=== PATIENT | female | born 1970 | race Two or more races ===

== ENCOUNTER 2020-06-15 09:29 | Outpatient (REF) | payer OTHER, SELFPAY ==
[2020-06-15 10:14] LABS: MANUAL DIFF FLAG NO
[2020-06-15 10:21] LABS: Basophils Percent Auto 0.8 % (0-2); Eosinophils Absolute Auto 0.1 X10*3/uL (0.0-0.4); Eosinophils Percent Auto 1.9 % (0-4); Hematocrit 40.9 % (37-47); Imm Gran Abs Auto 0.01 X10*3/uL (0.00-0.03); Imm Gran Pct Auto 0.3 % (0.0-0.4); Lymphocytes Absolute Auto 1.2 X10*3/uL (1.2-4.9); Lymphocytes Percent Auto 31.6 % (20-40); Mean Corpuscular HGB Conc 31.8 g/dl (31.0-35.0); Mean Corpuscular Hemoglobin 27.5 pg (27.0-33.0); Mean Corpuscular Volume 86.5 fL (80-98); Mean Platelet Volume 11.6 fL (9.4-12.3); Monocytes Absolute Auto 0.3 X10*3/uL (0.1-1.2); Monocytes Percent Auto 6.8 % (2-11); Neutrophils Absolute Auto 2.2 X10*3/uL (2.0-8.3); Neutrophils Percent Auto 58.6 % (45-73); Platelet Count 306 X10*3/uL (160-400); Red Blood Count 4.73 X10*6/uL (4.20-5.50); Red Cell Distribution Width 15.2 % (11.0-16.0); White Blood Count 3.7 X10*3/uL (4.8-10.8)
[2020-06-15 10:43] LABS: Alanine Aminotransferase 9 U/L (0-31); Albumin Level 4.2 g/dL (3.5-5.0); Alkaline Phosphatase 74 U/L (39-117); Anion Gap 12 (12-20); Aspartate Amino Transferase 10 U/L (5-31); Bilirubin Direct < 0.2 mg/dL (0.0-0.5); Bilirubin Total 0.6 mg/dL (0.0-1.0); Blood Urea Nitrogen 13 mg/dL (9-16); Calcium 8.7 mg/dL (8.4-10.2); Carbon Dioxide 28 mmol/L (22-29); Chloride 105 mmol/L (96-108); Estimated Glomerular Filt Rate > 60; Glucose Fasting 104 mg/dL (60-99); Potassium 4.3 mmol/l (3.3-5.1); Sodium 141 mmol/L (135-145)
== END 2020-06-15 09:30 | disposition home or self-care (01) ==
LOC: HO.LAB 09:29
PROVIDERS: PCP Internal Medicine Geriatric Medicine; Visit Provider Internal Medicine
DX: K51.00 Ulcerative (chronic) pancolitis without complications (principal)
CPT/HCPCS: 36415; 80053; 80076; 82248; 85025

== ENCOUNTER 2020-11-27 08:13 | Outpatient (REF) | payer OTHER, SELFPAY ==
[2020-11-27 08:52] LABS: MANUAL DIFF FLAG NO
[2020-11-27 09:09] LABS: Basophils Percent Auto 0.7 % (0-2); Eosinophils Absolute Auto 0.1 X10*3/uL (0.0-0.4); Eosinophils Percent Auto 1.7 % (0-4); Hematocrit 44.9 % (37-47); Hemoglobin 14.4 g/dl (12.0-16.0); Imm Gran Abs Auto 0.01 X10*3/uL (0.00-0.03); Imm Gran Pct Auto 0.2 % (0.0-0.4); Lymphocytes Absolute Auto 1.3 X10*3/uL (1.2-4.9); Lymphocytes Percent Auto 27.3 % (20-40); Mean Corpuscular HGB Conc 32.1 g/dl (31.0-35.0); Mean Corpuscular Hemoglobin 28.9 pg (27.0-33.0); Monocytes Absolute Auto 0.3 X10*3/uL (0.1-1.2); Monocytes Percent Auto 6.7 % (2-11); Neutrophils Absolute Auto 2.9 X10*3/uL (2.0-8.3); Neutrophils Percent Auto 63.4 % (45-73); Platelet Count 339 X10*3/uL (160-400); Red Blood Count 4.99 X10*6/uL (4.20-5.50); Red Cell Distribution Width 13.4 % (11.0-16.0); White Blood Count 4.6 X10*3/uL (4.8-10.8)
[2020-11-27 09:11] LABS: Alanine Aminotransferase 13 U/L (0-31); Albumin Level 4.2 g/dL (3.5-5.0); Alkaline Phosphatase 89 U/L (39-117); Aspartate Amino Transferase 12 U/L (5-31); Bilirubin Direct 0.2 mg/dL (0.0-0.5); Bilirubin Total 0.5 mg/dL (0.0-1.0); Total Protein 7.2 g/dL (6.5-8.0)
== END 2020-11-27 08:14 | disposition home or self-care (01) ==
LOC: HO.LAB 08:13
PROVIDERS: PCP Internal Medicine Geriatric Medicine; Visit Provider Internal Medicine
DX: K51.90 Ulcerative colitis, unspecified, without complications (principal)
CPT/HCPCS: 36415; 80076; 85025

== ENCOUNTER 2020-12-31 08:48 | Emergency (ER) | payer OTHER, SELFPAY ==
--- NOTE | ~2020-12-31 | CT_ITS ---
EXAMINATION: CT BRAIN WITHOUT CONTRAST. CT FACIAL BONES WITHOUT CONTRAST. CLINICAL INFORMATION: Head trauma. COMPARISON: None TECHNIQUE: 5 mm thin axial and reformatted 2 mm thin sagittal and coronal images of brain were obtained. Subsequently axial 3 mm thin and reformatted 1.5 mm thin sagittal and coronal images of facial bones were obtained. [facility] 965 FINDINGS: BRAIN: There is no acute intra-axial, extra-axial bleed, masses or midline shift. Both lateral ventricles are symmetrical in size and configuration without ventriculomegaly. There is no acute infarction in evolution. There is no edema. Bone windows reveal no calvarial abnormality. Bilateral paranasal sinuses and mastoid air cells are well-aerated with minimal mucoperiosteal thickening left sphenoid sinus. FACIAL BONES: There is no maxillofacial, nasal or mandibular fracture. Bilateral TM joints are symmetrical and intact. Bilateral bony orbits are intact. Visualized optic globe, optic nerve and the extraocular muscles are symmetrical and normal. There is mild right maxillary and right frontal periorbital soft tissue swelling. No underlying fracture seen. CT/CT facial bones wo con IMPRESSION: No acute intracranial process seen.. Right frontal and right maxillary soft tissue swelling but no underlying calvarial or maxillofacial fracture. Minimal mucoperiosteal thickening left sphenoid sinus. No maxillofacial fractures seen.
--- NOTE | ~2020-12-31 | CT_ITS ---
EXAMINATION: CT BRAIN WITHOUT CONTRAST. CT FACIAL BONES WITHOUT CONTRAST. CLINICAL INFORMATION: Head trauma. COMPARISON: None TECHNIQUE: 5 mm thin axial and reformatted 2 mm thin sagittal and coronal images of brain were obtained. Subsequently axial 3 mm thin and reformatted 1.5 mm thin sagittal and coronal images of facial bones were obtained. [facility] 965 FINDINGS: BRAIN: There is no acute intra-axial, extra-axial bleed, masses or midline shift. Both lateral ventricles are symmetrical in size and configuration without ventriculomegaly. There is no acute infarction in evolution. There is no edema. Bone windows reveal no calvarial abnormality. Bilateral paranasal sinuses and mastoid air cells are well-aerated with minimal mucoperiosteal thickening left sphenoid sinus. FACIAL BONES: There is no maxillofacial, nasal or mandibular fracture. Bilateral TM joints are symmetrical and intact. Bilateral bony orbits are intact. Visualized optic globe, optic nerve and the extraocular muscles are symmetrical and normal. There is mild right maxillary and right frontal periorbital soft tissue swelling. No underlying fracture seen. CT/CT head/brain wo con IMPRESSION: No acute intracranial process seen.. Right frontal and right maxillary soft tissue swelling but no underlying calvarial or maxillofacial fracture. Minimal mucoperiosteal thickening left sphenoid sinus. No maxillofacial fractures seen.
[2020-12-31 09:01] VITALS: BP 122/64; PULSE 94; RESP 16; TEMP 35.9; O2SAT 97; BMI 31.2
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
== END 2020-12-31 12:01 | disposition home or self-care (01) ==
PROVIDERS: Emergency Provider Emergency Medicine; PCP Internal Medicine Geriatric Medicine
DX: S09.90XA Unspecified injury of head, initial encounter (principal); S40.811A Abrasion of right upper arm, initial encounter; H05.231 Hemorrhage of right orbit; H57.11 Ocular pain, right eye; G44.309 Post-traumatic headache, unspecified, not intractable; W05.2XXA Fall from non-moving motorized mobility scooter, initial encounter; Y93.9 Activity, unspecified; Y92.9 Unspecified place or not applicable; Y99.9 Unspecified external cause status
CPT/HCPCS: 70450; 70486; 99283

== ENCOUNTER 2022-09-11 11:33 | Outpatient (REF) | payer OTHER, SELFPAY ==
[2022-09-11 11:51] LABS: MANUAL DIFF FLAG NO
[2022-09-11 12:06] LABS: Basophils Percent Auto 0.4 % (0-2); Eosinophils Absolute Auto 0.1 X10*3/uL (0.0-0.4); Eosinophils Percent Auto 0.9 % (0-4); Hematocrit 43.4 % (37.0-47.0); Imm Gran Abs Auto 0.03 X10*3/uL (0.00-0.03); Imm Gran Pct Auto 0.4 % (0.0-0.4); Lymphocytes Absolute Auto 1.4 X10*3/uL (1.2-4.9); Lymphocytes Percent Auto 20.2 % (20-40); Mean Corpuscular HGB Conc 32.3 g/dl (31.0-35.0); Mean Corpuscular Hemoglobin 29.2 pg (27.0-33.0); Mean Corpuscular Volume 90.6 fL (80.0-98.0); Mean Platelet Volume 10.5 fL (9.4-12.3); Monocytes Absolute Auto 0.4 X10*3/uL (0.1-1.2); Neutrophils Absolute Auto 5.1 x10*3/uL (2.0-8.3); Neutrophils Percent Auto 73.1 % (45-73); Platelet Count 320 X10*3/uL (160-400); Red Blood Count 4.79 X10*6/uL (4.20-5.50); Red Cell Distribution Width 13.5 % (11.0-16.0)
[2022-09-11 12:44] LABS: Erythrocyte Sedimentation Rate 42 MM/HR (0-20)
[2022-09-11 12:52] LABS: Alanine Aminotransferase 26 U/L (0-31); Albumin Level 4.3 g/dL (3.5-5.0); Alkaline Phosphatase 97 U/L (39-117); Amylase 38 U/L (28-100); Aspartate Amino Transferase 20 U/L (5-31); Bilirubin Direct < 0.2 mg/dL (0.0-0.5); Bilirubin Total 0.4 mg/dL (0.0-1.0); C Reactive Protein 1.19 mg/dL (< or = 0.50); Lipase 34 U/L (8-78); Total Protein 7.4 g/dL (6.5-8.0)
== END 2022-09-11 11:34 | disposition home or self-care (01) ==
LOC: HO.LAB 11:33
PROVIDERS: PCP Internal Medicine Geriatric Medicine; Visit Provider Internal Medicine
DX: K51.90 Ulcerative colitis, unspecified, without complications (principal); R19.7 Diarrhea, unspecified; K62.5 Hemorrhage of anus and rectum; R11.0 Nausea
CPT/HCPCS: 36415; 80076; 82150; 83690; 85025; 85652; 86140

== ENCOUNTER 2022-09-14 09:04 | Outpatient (REF) | payer OTHER, SELFPAY ==
[2022-09-15 11:56] LABS: Leukocytes Stool Qualitative NEGATIVE (NEGATIVE)
[2022-09-15 13:42] LABS: CDiff Gene PCR NEGATIVE (Negative)
[2022-09-20 23:04] LABS: Calprotectin, Fecal 3550 mcg/g
== END 2022-09-14 09:05 | disposition home or self-care (01) ==
LOC: HO.LNP 09:04
PROVIDERS: Visit Provider Internal Medicine
DX: K51.90 Ulcerative colitis, unspecified, without complications (principal); R19.7 Diarrhea, unspecified; K62.5 Hemorrhage of anus and rectum; R11.0 Nausea
CPT/HCPCS: 83993; 87493; 87507; 89055

== ENCOUNTER 2022-09-25 10:04 | Outpatient (REF) | payer OTHER, SELFPAY ==
[2022-09-25 12:06] LABS: Adenovirus F 40/41 Not Detected (Not Detect.); Astrovirus Not Detected (Not Detect.); Campylobacter Not Detected (Not Detect.); Cryptosporidium Not Detected (Not Detect.); Cyclospora cayetanensis Not Detected (Not Detect.); E. coli EAEC Not Detected (Not Detect.); E. coli EPEC Not Detected (Not Detect.); E. coli ETEC Not Detected (Not Detect.); E. coli STEC Not Detected (Not Detect.); Entamoeba histolytica Not Detected (Not Detect.); Giardia lamblia Not Detected (Not Detect.); Norovirus GI/GII Not Detected (Not Detect.); Plesiomonas shigelloides Not Detected (Not Detect.); Rotavirus A Not Detected (Not Detect.); Salmonella Not Detected (Not Detect.); Sapovirus Not Detected (Not Detect.); Shigella sp./EIEC Not Detected (Not Detect.); Vibrio Not Detected (Not Detect.); Vibrio Cholerae Not Detected (Not Detect.); Yersinia enterocolitica Not Detected (Not Detect.)
== END 2022-09-25 10:05 | disposition home or self-care (01) ==
LOC: HO.LNP 10:04
PROVIDERS: Visit Provider Internal Medicine
DX: R19.7 Diarrhea, unspecified (principal); K51.00 Ulcerative (chronic) pancolitis without complications
CPT/HCPCS: 87507

== ENCOUNTER 2022-11-03 09:30 | Day surgery (SDC) | payer OTHER, SELFPAY ==
--- NOTE | 2022-10-31 14:09 | P.CONAN_ITS ---
Documented by User: Lakisha Dixon NP 10/31/22 14:10 HPI - Anesthesia Eval Consult details Narrative: 52yo F for Colonoscopy [facility] Past Medical History Medical History Pneumonia Ulcerative colitis Surgical History Surgical History H/O colonoscopy Hx of inguinal hernia surgery Social History Social History Patient Tobacco Use Status: Never used Tobacco Are you DNR?: No Advance Directives: No Advance Directives Information Provided: Yes Nutrition Risks: No Nutritional Risk FDLMP: last month Meds Allergies Allergy/AdvReac Type Severity Reaction Status Date / Time infliximab [From REMICADE] Allergy Unknown UNKNOWN Verified 11/03/22 09:33 tramadol [TRAMADOL] Allergy Unknown UNKNOWN Verified 11/03/22 09:33 Home Medications Medication Instructions Recorded Confirmed Last Taken Type balsalazide 750 mg capsule 3 cap PO TID 10/31/22 10/31/22 Unknown History Exam Exam Date and Time: October 31, 2022 [id number] Assessment and Plan Assessment Anesthesia Assessment: Chart Reviewed Documented by User: Chanda Cuevas MD 11/03/22 10:38 [facility] Past Medical History Medical History Pneumonia Ulcerative colitis Family History Family history of problems with anesthesia: No Surgical History Surgical History H/O colonoscopy Hx of inguinal hernia surgery History of Problems with Anesthesia: No Social History Social History Patient Tobacco Use Status: Never used Tobacco Are you DNR?: No Advance Directives: No Advance Directives Information Provided: Yes Nutrition Risks: No Nutritional Risk FDLMP: last month Meds Allergies Allergy/AdvReac Type Severity Reaction Status Date / Time infliximab [From REMICADE] Allergy Unknown UNKNOWN Verified 11/03/22 09:33 tramadol [TRAMADOL] Allergy Unknown UNKNOWN Verified 11/03/22 09:33 Home Medications Medication Instructions Recorded Confirmed Last Taken Type balsalazide 750 mg capsule 3 cap PO TID 10/31/22 10/31/22 Unknown History Exam Height,Weight and Vital Signs: Height 5 ft 0.05 in Weight 74.389 kg Vital Signs Temp Pulse Resp BP Pulse Ox O2 Del Method 11/03/22 09:58 97.9 F 100 18 104/67 98 Room Air Pertinent Lab Results Pertinent Lab Results: Patient states absolutely no chance of being Airway Mallampati Class: II TM Dist: >3cm Neck ROM: Full Loose/Missing/Broken Teeth: No (Denies broken, loose, missing teeth) Heart: RRR Lungs: CTAB Assessment and Plan Assessment Anesthesia Assessment: Anesthesia Plan Discussed Final Anesthetic Review Family History of Problems with Anesthesia: No History of Problems with Anesthesia: No NPO: Yes ASA Class: II Final Preanesthetic Review: No Changes in Pt Med Stat, Meds/Allgs Chart Reviewed, Consent Obtained/Reviewed and Anes Risks/Benef Reviewed Patient Risk: Low Procedure Risk: Low Assessment/Block/Sedation in SS: Assess/Block/Sedation-SS Anesthetic Plan Anesthetic Plan: MAC: Disposition: Standard PACU
[2022-11-03 06:18] VITALS: BMI 31.9
--- NOTE | 2022-11-03 09:47 | PC.NURSE ---
Dr. Cuevas updated that patient states that she still has a menstrual cycle and denies any chance of pregnacy. Dr. Patel stated she will document this information and no urine hcg is necessary.
[2022-11-03] MEDS: Lactated Ringers 1,000 ML 100 ML IVCONT (09:50)
[2022-11-03 09:58] VITALS: BP 104/67; PULSE 100; RESP 18; TEMP 36.6; O2SAT 98
[2022-11-03 10:50] VITALS: BP 81/40; PULSE 82; RESP 16; TEMP 36.2; O2SAT 95
--- NOTE | 2022-11-03 10:54 | PM.OP ---
Brief Operative Note Date of Service: 11/03/22 Pre-op diagnosis: Ulcerative colitis, Screening Post-op diagnosis: other (Same, R/O dysplasia) Procedure: Colonoscopy to the cecum and TI with biopsies Surgeon: Jackson Gaitan Anesthesia: MAC Was an Aircraft Fuselage Framer used for this Procedure?: No Estimated blood loss (mL): 4.0 Pathology: other (A. Ascending colon B. Transverse colon C. Descending colon D. Sigmoid colon E. Rectum) Condition: stable Disposition: PACU
[2022-11-03 11:05] VITALS: BP 103/63; PULSE 72; RESP 16; TEMP 36.7; O2SAT 96
--- NOTE | 2022-11-03 12:58 | OP_ITS ---
SURGEON: Jackson Gaitan MD PREOPERATIVE DIAGNOSIS: POSTOPERATIVE DIAGNOSIS: PROCEDURE PERFORMED: Colonoscopy to the cecum and terminal ileum with multiple biopsies. ESTIMATED BLOOD LOSS: COMPLICATIONS: ANESTHESIA: Monitored anesthesia care. ASSISTANTS: SPECIMENS: PREOPERATIVE DIAGNOSES: Ulcerative colitis, history of tubular adenoma of the colon, colorectal cancer screening. POSTOPERATIVE DIAGNOSES: Ulcerative colitis, history of tubular adenoma of the colon, colorectal cancer screening, rule out dysplasia, and small internal hemorrhoids. INDICATION: The patient presents for evaluation of long-standing ulcerative colitis and history of tubular adenoma of the colon. Full consent has been obtained from her for this, including risks of bleeding and perforation. DESCRIPTION OF PROCEDURE: The patient was placed in the left lateral decubitus position. The digital rectal exam revealed no abnormalities and specifically no sign of any perianal disease. The Olympus video pediatric colonoscope was then entered into the rectum and advanced easily to the cecum. Once in the cecum, I did identify cecal pouch with appendiceal orifice. The terminal ileum was cannulated and appeared normal. The scope was withdrawn back in the colon. The entire cecum had changes consistent with a chronic ulcerative colitis with some scarring, edema, and friability. I did not visualize any lesions. The scope was then slowly withdrawn, assessing all mucosal surfaces carefully. Preparation was excellent. Extending from the distal rectum all the way to the cecum was a diffuse pancolitis with edema, friability, and scarring. There were no ulcerations nor any lesions. Multiple biopsies were obtained at the ascending colon, transverse colon, descending colon, sigmoid colon and rectum. In the rectum, scope was retroflexed visualizing small internal hemorrhoids, but no other pathology. The scope was straightened and withdrawn from the patient. She tolerated the procedure well and was returned to the recovery area in stable condition. IMPRESSION: 1. Ulcerative colitis, rule out dysplasia. 2. Small internal hemorrhoids. PLAN: The results of the biopsies will be checked. Assuming there is no dysplasia, I would recommend a repeat colonoscopy in two years for surveillance. She was advised to continue her current management of balsalazide 2.25 g t.i.d. She finished her course of prednisone recently and reports that did help her greatly and she reports that things are currently stable in regard to her bowel regimen. She has been advised continue the balsalazide 2.25 g t.i.d. along with using Imodium as needed. She will see me see me over the summer, but I advised her to definitely call me prior to that if she has any worsening symptoms of her colitis. She has been advised to avoid all aspirin and NSAIDs long-term as well. If she continues to have significant flare ups, then I would recommend initiation of one of the biologic agents at that point. MD DOLORES Shabazz/SLICK / [id number] MTDD
== END 2022-11-03 11:50 | disposition home or self-care (01) ==
PROVIDERS: PCP Internal Medicine Geriatric Medicine; Visit Provider Internal Medicine
PROC: 0DJD8ZZ Inspection of Lower Intestinal Tract, Via Natural or Artificial Opening Endoscopic (ICD-10-PCS; CPT 45378; principal; 2022-11-03 10:30)
DX: Z12.11 Encounter for screening for malignant neoplasm of colon (principal); Z86.010 Personal history of colon polyps; K51.00 Ulcerative (chronic) pancolitis without complications; K62.89 Other specified diseases of anus and rectum; K64.8 Other hemorrhoids; K63.89 Other specified diseases of intestine; Z79.899 Other long term (current) drug therapy
CPT/HCPCS: 45380; 88305

== ENCOUNTER 2024-08-23 13:49 | Outpatient (REF) | payer OTHER, SELFPAY ==
[2024-08-23 14:30] LABS: MANUAL DIFF FLAG NO
[2024-08-23 14:46] LABS: Basophils Percent Auto 0.4 % (0-2); Eosinophils Absolute Auto 0.1 X10*3/uL (0.0-0.4); Eosinophils Percent Auto 1.5 % (0-4); Hemoglobin 13.3 g/dl (12.0-16.0); Imm Gran Abs Auto 0.01 X10*3/uL (0.00-0.03); Imm Gran Pct Auto 0.2 % (0.0-0.4); Lymphocytes Absolute Auto 1.4 X10*3/uL (1.2-4.9); Lymphocytes Percent Auto 30.4 % (20-40); Mean Corpuscular HGB Conc 32.4 g/dl (31.0-35.0); Mean Corpuscular Hemoglobin 29.6 pg (27.0-33.0); Mean Corpuscular Volume 91.3 fL (80.0-98.0); Mean Platelet Volume 10.6 fL (9.4-12.3); Monocytes Absolute Auto 0.4 X10*3/uL (0.1-1.2); Monocytes Percent Auto 8.9 % (2-11); Neutrophils Absolute Auto 2.8 x10*3/uL (2.0-8.3); Neutrophils Percent Auto 58.6 % (45-73); Platelet Count 291 X10*3/uL (160-400); Red Blood Count 4.49 X10*6/uL (4.20-5.50); Red Cell Distribution Width 13.2 % (11.0-16.0); White Blood Count 4.7 X10*3/uL (4.8-10.8)
[2024-08-23 15:27] LABS: Erythrocyte Sedimentation Rate 24 MM/HR (0-20)
[2024-08-23 15:31] LABS: Alkaline Phosphatase 98 U/L (39-117); Anion Gap 11 (12-20); Aspartate Amino Transferase 29 U/L (5-31); Bilirubin Direct 0.1 mg/dL (0.0-0.5); Bilirubin Total 0.3 mg/dL (0.0-1.0); Blood Urea Nitrogen 11 mg/dL (9-16); C Reactive Protein 1.77 mg/dL (< or = 0.50); Calcium 9.2 mg/dL (8.4-10.2); Carbon Dioxide 25 mmol/L (22-29); Chloride 113 mmol/L (96-108); Estimated Glomerular Filt Rate > 60; Glucose Random 111 mg/dL (60-115); Potassium 4.7 mmol/L (3.3-5.1); Sodium 144 mmol/L (135-145); Total Protein 7.3 g/dL (6.5-8.0)
[2024-08-23 15:46] LABS: Alanine Aminotransferase 46 U/L (0-31)
--- OUTSIDE RECORDS SUMMARY | 2024-08-23 16:54 | XMS_ITS ---
Author Organization [facility] Address [address] [place] [address] Care Team Providers Care Boomswing Operator Name Role Phone Name Luther AUSTIN Primary Care Provider Jackson Yoo [phone] ANTONIA POWERS Unavailable REASON FOR VISIT Patient presents today for ulcerative colitis Encounters Encounter Location Date Provider Diagnosis [facility] [address] [place] [address] [place] [phone] 04/05/2024 Jackson Gaitan PLAN OF TREATMENT Next Appt Details Provider Name:Jackson Gaitan , 12/29/2024 09:40:00 AM, [address], [address], [place], [phone],
--- OUTSIDE RECORDS SUMMARY | 2024-08-23 16:54 | XMS_ITS ---
Author Organization [facility] Address [address] [place] [address] Care Team Providers Care Buffer Nickel Name Role Phone Name Luther AUSTIN Primary Care Provider Jackson Yoo [phone] ANTONIA POWERS Unavailable REASON FOR VISIT R/S OV Encounters Encounter Location Date Provider Diagnosis [facility] [address] [place] [id number] 04/04/2024 Jackson Gaitan PLAN OF TREATMENT Next Appt Details Provider Name:Jackson Gaitan , 12/29/2024 09:40:00 AM, [address] [facility], [address], [place], [address],
--- OUTSIDE RECORDS SUMMARY | 2024-08-23 16:55 | XMS_ITS | Patient Health Record ---
Author Organization [facility] Address [address] [place] [address] Care Team Providers Care Tank Pumper Panelboard Name Role Phone Name Luther AUSTIN Primary Care Provider Jackson Yoo Unavailable [phone] ANTONIA POWERS Unavailable Unavailable ALLERGIES Allergen (clinical drug ingredient) Drug/Non Drug Allergy documented on EMR Reaction Allergy Type Onset Date Status infliximab Remicade Unknown Drug Allergy Active RESULTS Component Value Reference Range Notes Complete Blood Count Auto Di ff Reviewed date:08/23/2024 04:35:44 PM Interpretation: Performing Lab:[facility], [address] [place] [phone] Notes/Report: White Blood Count 4.7 4.8-10.8 X10*3/uL Red Blood Count 4.49 4.20-5.50 X10*6/uL Hemoglobin 13.3 12.0-16.0 g/dl Hematocrit 41.0 37.0-47.0 % Mean Corpuscular Volume 91.3 80.0-98.0 fL Mean Corpuscular Hemoglobin 29.6 27.0-33.0 pg Mean Corpuscular HGB Conc 32.4 31.0-35.0 g/dl Red Cell Distribution Width 13.2 11.0-16.0 % Platelet Count 291 160-400 X10*3/uL Mean Platelet Volume 10.6 9.4-12.3 fL Neutrophils Percent Auto 58.6 45-73 % Imm Gran Pct Auto 0.2 0.0-0.4 % Lymphocytes Percent Auto 30.4 20-40 % Monocytes Percent Auto 8.9 2-11 % Eosinophils Percent Auto 1.5 0-4 % Basophils Percent Auto 0.4 0-2 % NRBC Pct Auto 0.0 0.0-0.2 /100WBC Neutrophils Absolute Auto 2.8 2.0-8.3 x10*3/u L Imm Gran Abs Auto 0.01 0.00-0.03 X10*3/uL Lymphocytes Absolute Auto 1.4 1.2-4.9 X10*3/u L Monocytes Absolute Auto 0.4 0.1-1.2 X10*3/uL Eosinophils Absolute Auto 0.1 0.0-0.4 X10*3/u L Basophils Absolute Auto 0.0 0.0-0.2 X10*3/uL NRBC Abs Auto 0.000 0.0-0.012 X10*3/uL Erythrocyte Sedimentation Ra te Reviewed date:08/23/2024 04:35:51 PM Interpretation: Performing Lab:[address] [phone] Notes/Report: Erythrocyte Sedimentation Rate 24 0-20 MM/HR Patients with polycythemia and many hemoglobin abnormalities may have depressed sed rates whereas patients with anemia may have elevated sed rates. Liver Panel Reviewed date:08/23/2024 04:36:08 PM Interpretation: Performing Lab:[address] [phone] Notes/Report: Bilirubin Total 0.3 0.0-1.0 mg/dL Bilirubin Direct 0.1 0.0-0.5 mg/dL Aspartate Amino Transferase 29 5-31 U/L Alanine Aminotransferase 46 0-31 U/L Total Protein 7.3 6.5-8.0 g/dL Albumin Level 4.0 3.5-5.0 g/dL Alkaline Phosphatase 98 39-117 U/L Basic Metabolic Panel Reviewed date:08/23/2024 04:36:23 PM Interpretation: Performing Lab:[address] [phone] Notes/Report: Sodium 144 135-145 mmol/L Potassium 4.7 3.3-5.1 mmol/L Chloride 113 96-108 mmol/L Carbon Dioxide 25 22-29 mmol/L Anion Gap 11 12-20 Blood Urea Nitrogen 11 9-16 mg/dL Creatinine 0.85 0.5-1.4 mg/dL Estimated Glomerular Filt Rate > 60 Chronic Kidney Disease: Estimated GFR < 60 mL/min/1.73m2 Severe Kidney Disease: Estimated GFR < 15 mL/min/1.73m2 Glucose Random 111 60-115 mg/dL Calcium 9.2 8.4-10.2 mg/dL C Reactive Protein Reviewed date:08/23/2024 04:36:31 PM Interpretation: Performing Lab:[facility], [address] [place] [phone] Notes/Report: C Reactive Protein 1.77 < or = 0.50 mg/dL REASON FOR REFERRAL No Information MEDICATIONS Medication SIG (Take, Route, Fr equency, Duration) Notes Start Date End Date Status Colazal 750 MG 3 capsules Orally Th ree times a day for 30 days 10/28/2011 Active predniSONE 5 MG 8 tablets(40mg) taye y for 1 week, and then decrease by 1 tablet(5mg) per week Orally Once a day for 56 days 05/11/2014 Active IMMUNIZATIONS Vaccine Route Administration Date Status Comme nts Influenza Unknown 09/11/2022 Refused SOCIAL HISTORY Sex Assigned At : Social History Observation Description Sex Assigned At Unknown Alcohol Screen Question Answer Notes Did you have a drink containing alcohol in the p ast year? No Points 0 Interpretation Negative PROBLEMS Problem Type ICD Code Onset Dates Problem Status W/U Status Risk SNOMED Code Notes Problem Encounter for screening for malignant neoplasm of colon (Z12.11) Active confirmed 555878658 Problem History of adenomatous polyp of colon (Z86.010) Active confirmed 218414545 Problem Personal history of colonic polyps (Z86.010) Active confirmed History of polyp of colon (situation) (461649514) Problem Ulcerative (chronic) pancolitis without complications (K51.00) Active confirmed 850770026 Problem Nausea (R11.0) Active confirmed 6187998 07 Problem Rectal bleed (K62.5) Active confirmed 37280281 Problem Ulcerative colitis without complications, unspecified location (K51.90) Active confirmed 59298720 Problem Ulcerative pancolitis without complication (K51.00) Active confirmed 119854864 Problem Ulcerative colitis (K51.90) Active confirmed Ulcerative colitis (82696140) Problem Abdominal pain, generalized (R10.84) Active confirmed 921889494 Problem Diarrhea, unspecified type (R19.7) Active confirmed 33585494 Problem Ulcerative chronic pancolitis without complications (K51.00) Active confirmed 652854030 VITAL SIGNS Blood pressure diastolic 00 mm Hg 08/23/2024 Height 60.5 in 08/23/2024 Blood pressure systolic 00 mm Hg 08/23/2024 Weight 167 lbs 08/23/2024 BMI 32.07 kg/m2 08/23/2024 Encounters Encounter Location Date Provider Diagnosis [facility] [address] [place] [phone] 09/15/2023 Jackson Gaitan [facility] [address] [place] [phone] 04/05/2024 Jackson Gaitan [facility] [address] [place] [phone] 08/23/2024 Jackson Gaitan Ulcerative pancoliti s without complication K51.00 ; Diarrhea, unspecified type R19.7 and Rectal bleed K62.5 [facility] [address] [place] [phone] 08/27/2023 Jackson Gaitan [facility] [address] [place] [phone] 04/04/2024 Jackson Gaitan ASSESSMENTS Encounter Date Diagnosis Assessment Notes Treatment Notes Treatment Clinical Notes 08/23/2024 Ulcerative pancolitis without complication (ICD-10 - K51.00) 08/23/2024 Diarrhea, unspecified type (ICD-10 - R19.7) 08/23/2024 Rectal bleed (ICD-10 - K62.5) PLAN OF TREATMENT Pending Test Test Name Order Date CHEM 7 PROFILE 08/23/2024 CHEM 7 PROFILE 12/09/2016 CHEM 7 PROFILE 05/20/2020 LIVER PROFILE 05/20/2020 LIVER PROFILE 03/07/2015 LIVER PROFILE 05/12/2018 LIVER PROFILE 10/18/2020 LIVER PROFILE 08/18/2012 LIVER PROFILE 08/29/2016 LIVER PROFILE 10/09/2011 LIVER PROFILE 05/30/2014 LIVER PROFILE 06/24/2020 LIVER PROFILE 05/18/2021 LIVER PROFILE 12/30/2012 LIVER PROFILE 02/09/2016 LIVER PROFILE 10/17/2014 LIVER PROFILE 12/10/2017 LIVER PROFILE 08/23/2024 LIVER PROFILE 08/22/2020 LIVER PROFILE 09/11/2022 LIVER PROFILE 08/05/2013 LIVER PROFILE 12/09/2016 IRON + IBC (FE) 10/09/2011 FERRITIN 10/09/2011 CRP 09/11/2022 CRP 08/23/2024 CBC w DIFF 08/23/2024 CBC w DIFF 08/05/2013 CBC w DIFF 12/09/2016 CBC w DIFF 05/20/2020 CBC w DIFF 03/07/2015 CBC w DIFF 05/12/2018 CBC w DIFF 09/11/2022 CBC w DIFF 10/18/2020 CBC w DIFF 08/18/2012 CBC w DIFF 08/29/2016 CBC w DIFF 05/30/2014 CBC w DIFF 06/24/2020 CBC w DIFF 05/18/2021 CBC w DIFF 12/30/2012 CBC w DIFF 02/09/2016 CBC w DIFF 10/09/2011 CBC w DIFF 10/17/2014 CBC w DIFF 12/10/2017 CBC w DIFF 08/22/2020 SED RATE (ESR) 08/23/2024 SED RATE (ESR) 09/11/2022 HEPATITIS B PROFILE 08/23/2024 HEPATITIS B SURFACE ANTIGEN 01/22/2012 PROMETHEUS THIOPURINE METABOLITES (TPMT) 02/09/2016 PROMETHEUS THIOPURINE METABOLITES (TPMT) 12/09/2016 PROMETHEUS THIOPURINE METABOLITES (TPMT) 08/29/2016 STOOL WBC 09/11/2022 C DIFFICILE RFLX PCR 08/23/2024 C DIFFICILE RFLX PCR 09/11/2022 Calprotectin, Fecal 08/23/2024 T Spot TB 08/23/2024 GI PANEL 09/11/2022 GI PANEL 08/23/2024 GI PANEL 09/15/2022 Future Test Test Name Order Date COLONOSCOPY 01/15/2016 COLONOSCOPY 12/09/2016 COLONOSCOPY 05/12/2018 COLONOSCOPY 11/02/2019 COLONOSCOPY 09/11/2022 Next Appt Details Provider Name:Jackson Gaitan , 12/29/2024 09:40:00 AM, [address] [facility], [address], [place], [address], Insurance Providers Payer Name Payer Address Payer Phone Subscriber Number Group Number Insured Name Patient Relationship to Insured Coverage Start Date Coverage End Date [facility] [address] [address] [place] [id number] KRISTINA RAPHAEL Self - patient is the insured MEDICAL (GENERAL) HISTORY Medical History History ICD Code Ulcerative colitis, dx'd in approx. 2000 in [place]--she was started on Humira in 2012 after she developed an allergic reaction to the Remicade--she stopped her Humira in the early part of 2015 Colonoscopy June 2018 Le ft colon > right colon-no dysplasia, no adenomas-greatest activity in the rectum and sigmoid Denies [place],DM,CVA,Lung disease,renal dise ase Allergic reaction to Remicad e infusion on 11/09/12 with hives and rash-Rx'd with Benadryl and Hydrocortisone She was admitted to [facility] at t he end of April 2014 for a flare of the ulcerative colitis--she had run out of her azathioprine a few weeks before that admission-she improved quickly with IV steroids and was sent home on a steroid taper, along with getting back on her azathioprine, and continuing the balsalazide and Humira pneumonia-2016 Colonoscopy in 04/2016--flat adenoma in cecum(not completely removed), no active colitis, no dysplasia Colonoscopy in 02/2017--no adenomas, no d ysplasia--chronic active colitis Pneumonia 2019 Colonoscopy 06/2018--tubular adenoma removed from the cecum, chronic colitis, biopsies neg. from the dysplasia from the cecum. Pneumonia in 10/2019-- on Joanie xicillin started on 10/28/2019. She describes a chest x-ray as showing a pneumonia at a walk-in center and having been started on amoxicillin. As of the 11/02/2019 visit she reports improvement in her symptoms and is no longer having any coughing, fever, or shortness of breath. She describes a nasal swab was negative for the flu. Colonoscopy in April of 2020 revealed a small tubular adenoma in the cecum and chronic changes of colitis throughout the colon. Biopsies were otherwise negative for dysplasia. There was no evidence of any active colitis. She had been on balsalazide and azathioprine at that time. Surgical History Surgery Date(Month/Year) Hernia
[2024-08-24 09:19] LABS: HBS Num1 0.39 mIU/mL (0-7.99); HBc Num1 0.05 S/CO (0.00-0.79); HBsAGNum1 0.37 S/CO (0.00-0.99); Hepatitis B Core Antibody Nonreactive (Nonreactive); Hepatitis B Surface Antigen Negative (Negative); ~Hepatitis B Surface Antibody NONREACTIVE (Nonreactive)
[2024-08-26 02:52] LABS: TS Negative Control Passed; TS Panel A 0; TS Panel B 0; TS Positive Control Passed; TSpotTB Negative (Negative)
== END 2024-08-23 13:50 | disposition home or self-care (01) ==
LOC: HO.LAB 13:49
PROVIDERS: PCP Internal Medicine Geriatric Medicine; Visit Provider Internal Medicine
DX: K51.00 Ulcerative (chronic) pancolitis without complications (principal); R19.7 Diarrhea, unspecified; K62.5 Hemorrhage of anus and rectum
CPT/HCPCS: 36415; 80048; 80076; 85025; 85652; 86140; 86481; 86704; 86706; 87340

== ENCOUNTER 2025-01-31 09:58 | Outpatient (REF) | payer OTHER, SELFPAY ==
--- OUTSIDE RECORDS SUMMARY | 2025-01-31 11:17 | XMS_ITS ---
Author Organization [facility] Address [address] [place] [phone] Care Team Providers Care School Year Nanny Name Role Phone Name Luther AUSTIN Primary Care Provider UnavailJackson Bell Unavailable [phone] ANTONIA POWERS Unavailable Unavailable Allergies Allergen (clinical [...] 12/29/2024 Encounters Encounter Location Date Provider Diagnosis [facility] [address] [place] [phone] 12/29/2024 Jackson Gaitan Ulcerative pancoliti s without [...] Provider Name:Jackson Gaitan , 07/04/2025 09:10:00 AM, [address] [place] [address], [address], [place], [phone], Progress Notes * KRISTINA RAPHAEL CDOB: 0 (54 yo F)Acc No.[id number]:12/29/2024 Progress Notes Patient:KRISTINA LOZOYA Provider:?Jackson Gaitan MD :1970???Age:54 Y???Sex:Female D ate:12/29/2024 Address:[address] [place] [address] [place], [id number] Pcp:Luther Dean MD Subjective: * Chief Complaints: * ???Patient presents today fo r ulcerative colitis * HPI: ???incontinence:? I saw Kristina in follow-up today in [...] profile, and a negative TB test. * ROS:?General/Constitutional:?Change in appetite?denies.?Chills?denies.?Fatigue?denies.?Ophthalmologic:?Patient denies? Negative..?ENT:?Patient denies?Negative..?Respiratory:?Patient denies?No coughing/hemoptysis..?Cardiovascular:?Patient denies? No chest pain/orthopnea..?Gastrointestinal:?Comments?See HPI for details.?Genitourinary:?Patient denies? No dysuria/hematuria..?Musculoskeletal:?Patient denies? No specific arthralgias/myalgias..?Skin:?Patient denies?No rash/pruritus..?Neurologic:?Patient denies? No headaches/seizures..?Psychiatric:?Patient denies?Negative..? * Medical History:? * Surgical History:?Hernia * Hospitalization/Major Diagno stic Procedure:?No Hospitalization History. * Family History:?Father: unkn own.?Mother: , mom has a history of diverticulitis, diagnosed with HTN (hypertension), Diabetes.?Siblings: , at age 51 pancreatic cancer.? No family history of colorectal cancer nor IBD. Brother of pancreatic cancer at age 50. * Social History:?Tobacco Use:?Tobacco Use/Smoking?Are you a: nonsmoker.?Drugs/Alcohol:?Alcohol Screen?Did you have a drink containing alcohol in the past year??No,?Points?0,?Interpretation?Negative.?Miscellaneous:?Marital status: single. 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 ???Nonsmoker; no alcohol. * Medications:?TakingColazal 7 50 MG Capsule 3 capsules Orally Three times [...] reviewed and reconciled with the patient * Allergies:?Remicadeyes[Aller gies Verified] Objective: * Vitals:?Wt:169lbs, Ht: 60.5 in, BMI:32.46Index, BP:111/77mm Hg, Wt-k.66. * Examination: ???General Examination: ?GENERAL APPEARANCE:?pleasant, well nourished, well developed, in no acute distress but with Cushingoid appearance.?EYES:?sclera non-icteric.?ORAL CAVITY:?mucosa moist.?NECK/THYROID:?no cervical lymphadenopathy, neck supple.?SKIN:?nonjaundiced, no spider angiomata..?HEART:?S1, S2 normal.?LUNGS:?clear to auscultation bilaterally.?ABDOMEN:?normal bowel sounds, no guarding or rigidity, no hepatosplenomegaly, no masses palpable, soft, nontender, nondistended..?EXTREMITIES:?no edema.?NEUROLOGIC:?alert and oriented.? Assessment: * Assessment: 1.?Ulcerative pancolitis wit hout complication - K51.00 (Primary)???2.?Diarrhea, unspecified type - R19.7???3.?Rectal bleed - K62.5??? Overall, Kristina appears well from a clinical [...] advised of her progress. Plan: * Treatment: 2.?Diarrhea, unspecified typ e?LAB: C DIFFICILE RFLX PCR ?LAB: Calprotectin, Fecal ?LAB: GI PANEL 3.?Others? Refill predniSONE Tablet, 5 MG, 8 TABLETS(40mg) BY MOUTH DAILY X 1 WEEK, THEN DECREASE DAILY DOSE BY 1 TAB (5mg)EACH WEEK, Orally, Once a day, 56 days, 275, Refills 0.?? * Procedure Codes:?3017F COLOR ECTAL CA SCREEN DOC [id number] TOBACCO [id number] BP SCR NOT PRFRM REC REASON NOS * Preventive Medicine:? ??Counseling:?Care goal follow-up plan:?Above Normal BMI Follow-up?Giving encouragement to exercise,?BMI management provided?Yes.? * Follow Up:?2024 * * Sign off status: Completed true * Provider:?Jackson Gaitan MD Date:? 025 Generated for Kimmy khanna/Kailey/Juanitoitting on:?01/31/2025 07:03 AM EDT History and Physical Notes * [...]
[2025-01-31 11:46] LABS: MANUAL DIFF FLAG NO
[2025-01-31 11:57] LABS: Basophils Percent Auto 0.5 % (0-2); Eosinophils Absolute Auto 0.1 X10*3/uL (0.0-0.4); Eosinophils Percent Auto 0.9 % (0-4); Hematocrit 42.7 % (37.0-47.0); Hemoglobin 13.7 g/dl (12.0-16.0); Imm Gran Abs Auto 0.02 X10*3/uL (0.00-0.03); Imm Gran Pct Auto 0.3 % (0.0-0.4); Lymphocytes Percent Auto 24.5 % (20-40); Mean Corpuscular HGB Conc 32.1 g/dl (31.0-35.0); Mean Corpuscular Hemoglobin 29.5 pg (27.0-33.0); Mean Corpuscular Volume 91.8 fL (80.0-98.0); Monocytes Absolute Auto 0.6 X10*3/uL (0.1-1.2); Neutrophils Absolute Auto 5.3 x10*3/uL (2.0-8.3); Neutrophils Percent Auto 66.8 % (45-73); Platelet Count 266 X10*3/uL (160-400); Red Blood Count 4.65 X10*6/uL (4.20-5.50); Red Cell Distribution Width 14.2 % (11.0-16.0)
[2025-01-31 12:24] LABS: Alanine Aminotransferase 42 U/L (0-31); Albumin Level 4.2 g/dL (3.5-5.0); Alkaline Phosphatase 87 U/L (39-117); Anion Gap 12 (12-20); Aspartate Amino Transferase 21 U/L (5-31); Bilirubin Total 0.3 mg/dL (0.0-1.0); Blood Urea Nitrogen 15 mg/dL (9-16); Calcium 9.1 mg/dL (8.4-10.2); Carbon Dioxide 28 mmol/L (22-29); Chloride 108 mmol/L (96-108); Cholesterol 247 mg/dL (<200); Estimated Glomerular Filt Rate > 60; Glucose Random 145 mg/dL (60-115); HDL Cholesterol 52 mg/dL (>40); LDL Cholesterol Calculated 161 mg/dL (<100); Potassium 4.5 mmol/L (3.3-5.1); Sodium 143 mmol/L (135-145); TSH reflex Free T4 1.66 uIU/mL (0.32-4.0); Triglycerides 170 mg/dL (<150)
== END 2025-01-31 09:59 | disposition home or self-care (01) ==
LOC: HO.HHCL 09:58
PROVIDERS: PCP Internal Medicine Geriatric Medicine; Visit Provider Internal Medicine Geriatric Medicine
DX: Z00.00 Encounter for general adult medical examination without abnormal findings (principal); R63.5 Abnormal weight gain; Z28.21 Immunization not carried out because of patient refusal; Z12.4 Encounter for screening for malignant neoplasm of cervix; Z13.1 Encounter for screening for diabetes mellitus; Z13.220 Encounter for screening for lipoid disorders
CPT/HCPCS: 36415; 80053; 80061; 84443; 85025

== ENCOUNTER 2025-02-01 08:45 | Outpatient (REF) | payer OTHER, SELFPAY ==
--- OUTSIDE RECORDS SUMMARY | 2024-12-29 05:40 | XMS_ITS ---
Author Organization [facility] Address [address] [place] [phone] Care Team Providers Care J2Ee Software Engineer Name Role Phone Name Luther AUSTIN Primary Care Provider UnavailJackson Bell Unavailable [phone] ANTONIA POWERS Unavailable Unavailable Allergies Allergen (clinical drug ingredient) Drug/Non Drug Allergy documented on EMR Reaction Allergy Type Onset Date Status infliximab Remicade Unknown Drug Allergy Active REASON FOR VISIT patient presents today for ulcerative colitis Medications Medication SIG (Take, Route, Fr equency, Duration) Notes Start Date End Date Status predniSONE 5 MG 8 TABLETS(40mg) BY M OUTH DAILY X 1 WEEK, THEN DECREASE DAILY DOSE BY 1 TAB (5mg)EACH WEEK Orally Once a day for 56 days Active Colazal 750 MG 3 capsules Orally Th ree times a day for 30 days 10/28/2011 Active Social History Alcohol Screen Question Answer Notes Did you have a drink containing alcohol in the p ast year? No Points 0 Interpretation Negative Section Notes: Nonsmoker; no alcohol Vital Signs Blood pressure systolic 111 mm Hg 12/30/19 25 Blood pressure diastolic 77 mm Hg 025 Height 60.5 in 12/29/2024 Weight 169 lbs 12/29/2024 BMI 32.46 kg/m2 12/29/2024 Encounters Encounter Location Date Provider Diagnosis [facility] [address] [place] [phone] 12/29/2024 Jackson Gaitan Ulcerative pancoliti s without complication K51.00 ; Diarrhea, unspecified type R19.7 and Rectal bleed K62.5 Assessments Encounter Date Diagnosis (ICD Code) Assessment Notes Treatment Notes Treatment Clinical Notes Section Notes 12/29/2024 Ulcerative pancolitis without complication (ICD-10 - K51.00) I will send over a new prednisone prescription Look into the Biologic Agents like Stelara, Skyrizi, etc Overall, Kristina appears well from a clinical standpoint but is clearly having a recurrent flare of her colitis after finishing her course of prednisone earlier this year. As on her previous visit in August we did review the ulcerative colitis in detail and what I feel is a need for starting a biologic agent at this point given her prompt relapse off of the prednisone. We had discussed that back in August. However, she is hesitant to start a biologic agent as she would like to do some of her own research about it. She is also concerned that she may not be compliant with it as she has had problems with compliance in the past. I did encourage her to definitely think about it. I advised her that I would look to start her on something such as Stelara or Skyrizi given that she could just do injections on her own once she has finished the IV infusion portion at the initial phase of the medication. She had been on Remicade in the past but had to stop that due to an allergy and was also on Humira but did not like the injections. At this point I am going to put her on another course of prednisone given her active symptoms. I have given her a new lab slip to do stool specimens. I do not think she needs any laboratories. I did advise her to look into the biologic agents in the meantime. I did advise her to certainly remain compliant with her balsalazide as well. I have given her an appointment to see me in the Fall. Hopefully the prednisone will induce remission and things will remain stable once she has finished the prednisone. However, I did advise her to call me prior to the next visit if things worsen again and we can always start a biologic agent sooner than her next appointment. We did review that she will ultimately need a follow-up colonoscopy but I would like to get her colitis in better control first. Kristina was comfortable with this plan. Thank you again for allowing me to participate in Kristina's care. I shall continue to keep you advised of her progress. 12/29/2024 Diarrhea, unspecified type (ICD-10 - R19.7) Overall, Kristina appears well from a clinical standpoint but is clearly having a recurrent flare of her colitis after finishing her course of prednisone earlier this year. As on her previous visit in August we did review the ulcerative colitis in detail and what I feel is a need for starting a biologic agent at this point given her prompt relapse off of the prednisone. We had discussed that back in August. However, she is hesitant to start a biologic agent as she would like to do some of her own research about it. She is also concerned that she may not be compliant with it as she has had problems with compliance in the past. I did encourage her to definitely think about it. I advised her that I would look to start her on something such as Stelara or Skyrizi given that she could just do injections on her own once she has finished the IV infusion portion at the initial phase of the medication. She had been on Remicade in the past but had to stop that due to an allergy and was also on Humira but did not like the injections. At this point I am going to put her on another course of prednisone given her active symptoms. I have given her a new lab slip to do stool specimens. I do not think she needs any laboratories. I did advise her to look into the biologic agents in the meantime. I did advise her to certainly remain compliant with her balsalazide as well. I have given her an appointment to see me in the Fall. Hopefully the prednisone will induce remission and things will remain stable once she has finished the prednisone. However, I did advise her to call me prior to the next visit if things worsen again and we can always start a biologic agent sooner than her next appointment. We did review that she will ultimately need a follow-up colonoscopy but I would like to get her colitis in better control first. Kristina was comfortable with this plan. Thank you again for allowing me to participate in Kristina's care. I shall continue to keep you advised of her progress. 12/29/2024 Rectal bleed (ICD-10 - K62.5) Overall, Kristina appears well from a clinical standpoint but is clearly having a recurrent flare of her colitis after finishing her course of prednisone earlier this year. As on her previous visit in August we did review the ulcerative colitis in detail and what I feel is a need for starting a biologic agent at this point given her prompt relapse off of the prednisone. We had discussed that back in August. However, she is hesitant to start a biologic agent as she would like to do some of her own research about it. She is also concerned that she may not be compliant with it as she has had problems with compliance in the past. I did encourage her to definitely think about it. I advised her that I would look to start her on something such as Stelara or Skyrizi given that she could just do injections on her own once she has finished the IV infusion portion at the initial phase of the medication. She had been on Remicade in the past but had to stop that due to an allergy and was also on Humira but did not like the injections. At this point I am going to put her on another course of prednisone given her active symptoms. I have given her a new lab slip to do stool specimens. I do not think she needs any laboratories. I did advise her to look into the biologic agents in the meantime. I did advise her to certainly remain compliant with her balsalazide as well. I have given her an appointment to see me in the Fall. Hopefully the prednisone will induce remission and things will remain stable once she has finished the prednisone. However, I did advise her to call me prior to the next visit if things worsen again and we can always start a biologic agent sooner than her next appointment. We did review that she will ultimately need a follow-up colonoscopy but I would like to get her colitis in better control first. Kristina was comfortable with this plan. Thank you again for allowing me to participate in Kristina's care. I shall continue to keep you advised of her progress. Plan Of Treatment Medication Medication Name Sig Start Date Stop Date Notes predniSONE 5 MG 8 TABLETS(40mg) BY M OUTH DAILY X 1 WEEK, THEN DECREASE DAILY DOSE BY 1 TAB (5mg)EACH WEEK Orally Once a day for 56 days Treatment Notes Assessment Notes Ulcerative pancolitis without complicati on I will send over a new prednisone prescription Look into the Biologic Agents like Stelara, Skyrizi, etc Pending Test Test Name Order Date C DIFFICILE RFLX PCR 12/29/2024 Calprotectin, Fecal 12/29/2024 GI PANEL 12/29/2024 Next Appt Details Follow Up: 2024, Reaso n: Provider Name:Jackson Gaitan , 07/04/2025 09:10:00 AM, [address] [place] [address], [address], [place], [phone], Progress Notes * KRISTINA RAPHAEL CDOB: 0 (54 yo F)Acc No.[id number]:12/29/2024 Progress Notes Patient: KRISTINA PEARCE Provider: Elizabeth Gaitan MD :1970 A ge:54 Y S ex:Female Date:12/29/2024 Address:[address] [place] [address] [id number] Pcp:Luther Dean MD Subjective: * Chief Complaints: * P atfrank presents today for ulcerative colitis * HPI: i ncontinence: I saw Kristina in follow-up today in regard to her underlying history of ulcerative colitis and ongoing issues with diarrhea. I last saw Kristina in early August. At that time she was having a flare of her colitis. She had previously stopped her balsalazide and was not on any medication. I did have her resume the balsalazide at 2.25 g 3 times daily and started her on a prednisone taper beginning at 40 mg/day. She does report that the prednisone definitely helped her and she was feeling well after she finished it. However, over at least the past 1 month she has been having return of her symptoms with diarrhea, urgency, and some bleeding. She has remained compliant with the balsalazide by her report. She is not using any NSAIDs and has not been on any antibiotics. She describes at least 5 loose stools daily. She is eating well otherwise and has not lost any weight. She denies any fevers, nausea, vomiting, nor abdominal pain. She has not noticed any jaundice. I did order stool specimens when I saw her in August but she never did those. However, she did do laboratories which showed a normal CBC, sed rate of 24, normal liver profile except for a minimal elevation of the ALT, albumin 4.0, normal chemistries and renal function, C-reactive protein of 1.8, negative hepatitis B profile, and a negative TB test. * ROS: G eneral/Constitutional: Change in appetite d enies. C hills d enies. F atigue d enies. O phthalmologic: Patient denies Negative.. E NT: Patient denies N egative.. R espiratory: Patient denies N o coughing/hemoptysis.. C ardiovascular: Patient denies No chest pain/orthopnea.. G astrointestinal: Comments S [facility] for details. G enitourinary: Patient denies No dysuria/hematuria.. M usculoskeletal: Patient denies No specific arthralgias/myalgias.. ? S kin: Patient denies N o rash/pruritus.. N eurologic: Patient denies No headaches/seizures.. P sychiatric: Patient denies N egative.. * Medical History: * Surgical History: H ernia * Hospitalization/Major Diagno stic Procedure: N o Hospitalization History. * Family History: F ather: unknown. M other: , mom has a history of diverticulitis, diagnosed with HTN (hypertension), Diabetes. S iblings: , at age 51 pancreatic cancer. No family history of colorectal cancer nor IBD. Brother of pancreatic cancer at age 50. * Social History: T obacco Use: T obacco Use/Smoking A re you a: nonsmoker. D rugs/Alcohol: A lcohol Screen D id you have a drink containing alcohol in the past year? N o, P oints 0 , I nterpretation N egative. M iscellaneous: M arital status: single. 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 N onsmoker; no alcohol. * Medications: T akingColazal 750 MG Capsule 3 capsules Orally Three times a day Taking Colazal 750 MG Capsule 3 capsules Orally Three times a day DiscontinuedpredniSONE 5 MG Tablet TAKE 8 TABLETS BY MOUTH DAILY X 1 WEEK, THEN DECREASE DAILY DOSE BY 1 TAB EACH WEEK DIRECTED Medication List reviewed and reconciled with the patientDiscontinued predniSONE 5 MG Tablet TAKE 8 TABLETS BY MOUTH DAILY X 1 WEEK, THEN DECREASE DAILY DOSE BY 1 TAB EACH WEEK DIRECTED Medication List reviewed and reconciled with the patient * Allergies: R jeronimo[Allergies Verified] Objective: * Vitals: W t:169lbs, Ht: 60.5 in, BMI:32.46Index, BP:111/77mm Hg, Wt-k.66. * Examination: G eneral Examination: GENERAL APPEARANCE: p leasant, well nourished, well developed, in no acute distress but with Cushingoid appearance. EYES: s clera non-icteric. ORAL CAVITY: m ucosa moist. NECK/THYROID: n o cervical lymphadenopathy, neck supple.? SKIN: n onjaundiced, no spider angiomata.. HEART: S 1, S2 normal. LUNGS: c lear to auscultation bilaterally. ABDOMEN: n ormal bowel sounds, no guarding or rigidity, no hepatosplenomegaly, no masses palpable, soft, nontender, nondistended.. EXTREMITIES: n o edema. NEUROLOGIC: a lert and oriented. Assessment: * Assessment: 1. U lcerative pancolitis without complication - K51.00 (Primary) 2 . D iarrhea, unspecified type - R19.7 3 . R ectal bleed - K62.5 Overall, Kristina appears well from a clinical standpoint but is clearly having a recurrent flare of her colitis after finishing her course of prednisone earlier this year. As on her previous visit in August we did review the ulcerative colitis in detail and what I feel is a need for starting a biologic agent at this point given her prompt relapse off of the prednisone. We had discussed that back in August. However, she is hesitant to start a biologic agent as she would like to do some of her own research about it. She is also concerned that she may not be compliant with it as she has had problems with compliance in the past. I did encourage her to definitely think about it. I advised her that I would look to start her on something such as Stelara or Skyrizi given that she could just do injections on her own once she has finished the IV infusion portion at the initial phase of the medication. She had been on Remicade in the past but had to stop that due to an allergy and was also on Humira but did not like the injections. At this point I am going to put her on another course of prednisone given her active symptoms. I have given her a new lab slip to do stool specimens. I do not think she needs any laboratories. I did advise her to look into the biologic agents in the meantime. I did advise her to certainly remain compliant with her balsalazide as well. I have given her an appointment to see me in the Fall. Hopefully the prednisone will induce remission and things will remain stable once she has finished the prednisone. However, I did advise her to call me prior to the next visit if things worsen again and we can always start a biologic agent sooner than her next appointment. We did review that she will ultimately need a follow-up colonoscopy but I would like to get her colitis in better control first. Kristina was comfortable with this plan. Thank you again for allowing me to participate in Kristina's care. I shall continue to keep you advised of her progress. Plan: * Treatment: 2. D iarrhea, unspecified type L AB: C DIFFICILE RFLX PCR L AB: Calprotectin, Fecal L AB: GI PANEL 3. O thers Refill predniSONE Tablet, 5 MG, 8 TABLETS(40mg) BY MOUTH DAILY X 1 WEEK, THEN DECREASE DAILY DOSE BY 1 TAB (5mg)EACH WEEK, Orally, Once a day, 56 days, 275, Refills 0. * Procedure Codes: 3 017F COLORECTAL CA SCREEN DOC [id number] TOBACCO [id number] BP SCR NOT PRFRM REC REASON NOS * Preventive Medicine: Counseling: C are goal follow-up plan: A megan Normal BMI Follow-up G iving encouragement to exercise, B ND management provided Y es. * Follow Up: F all, 2024 * * Sign off status: Completed true * Provider: Elizabeth Gaitan MD Date: 0 12/29/2024 Generated for Kimmy khanna/Kailey/Juanitoitting on: 0 02/01/2025 09:14 AM EDT History and Physical Notes * HPI (History of Present Illness) Category Sub-Category Detail Notes Category Not es incontinence I saw Kristina in follow-up today in regard to her underlying history of ulcerative colitis and ongoing issues with diarrhea. I last saw Kristina in early August. At that time she was having a flare of her colitis. She had previously stopped her balsalazide and was not on any medication. I did have her resume the balsalazide at 2.25 g 3 times daily and started her on a prednisone taper beginning at 40 mg/day. She does report that the prednisone definitely helped her and she was feeling well after she finished it. However, over at least the past 1 month she has been having return of her symptoms with diarrhea, urgency, and some bleeding. She has remained compliant with the balsalazide by her report. She is not using any NSAIDs and has not been on any antibiotics. She describes at least 5 loose stools daily. She is eating well otherwise and has not lost any weight. She denies any fevers, nausea, vomiting, nor abdominal pain. She has not noticed any jaundice. I did order stool specimens when I saw her in August but she never did those. However, she did do laboratories which showed a normal CBC, sed rate of 24, normal liver profile except for a minimal elevation of the ALT, albumin 4.0, normal chemistries and renal function, C-reactive protein of 1.8, negative hepatitis B profile, and a negative TB test. Examination Category Sub-Category Detail Notes Category Not es General Examination GENERAL APPEARANCE: pleasant , well nourished, well developed, in no acute distress but with Cushingoid appearance EYES: sclera non-icteric NECK/THYROID: no cervical lymphade nopathy, neck supple HEART: S1, S2 normal LUNGS: clear to auscultatio n bilaterally ABDOMEN: normal bowel sounds, no guarding or rigidity, no hepatosplenomegaly, no masses palpable, soft, nontender, nondistended. NEUROLOGIC: alert and oriented SKIN: nonjaundiced, no spi roscoe angiomata. EXTREMITIES: no edema ORAL CAVITY: mucosa moist
[2025-02-01 11:59] LABS: Estimated Average Glucose 140 mg/dL; Hemoglobin A1C 170.6845 umol/L; Hemoglobin A1c % 6.5 % (<6.0); Total Hemoglobin (HGBA1C) 3619.0275 umol/L
== END 2025-02-01 08:46 | disposition home or self-care (01) ==
LOC: HO.HHCL 08:45
PROVIDERS: PCP Internal Medicine Geriatric Medicine; Visit Provider Internal Medicine Geriatric Medicine
DX: R73.9 Hyperglycemia, unspecified (principal)
CPT/HCPCS: 36415; 83036

== ENCOUNTER 2025-03-09 09:18 | Outpatient (REF) | payer OTHER, SELFPAY ==
--- NOTE | ~2025-03-09 | XR_ITS ---
EXAMINATION: XR CHEST CLINICAL INFORMATION: Patient with 2-week duration of cough COMPARISON: 10/03/2016. TECHNIQUE: 2 views of the chest were obtained. FINDINGS: The cardiac, hilar, and mediastinal contours are normal. The lungs are clear bilaterally. There is no pneumothorax or pleural effusion. There is no focal osseous or soft tissue abnormality. XR/XR chest 2V IMPRESSION: Normal chest. Electronically signed by: Gil Zaidi MD 03/09/2025 09:51 AM EDT
--- OUTSIDE RECORDS SUMMARY | 2025-03-09 09:49 | XMS_ITS | Clinical Summary ---
Author Organization [employer] Address [address] [place] [address] [address] [place] [address] Care Team Providers Care Legal Biller Name Role Phone Name, Luther AUSTIN Primary Care Provider [phone] Allergies Active Allergy Reactions Criticality Noted Date Comments Infliximab 07/22/2013 Medications balsalazide (Colazal) 750 MG capsule take 3 capsules by mouth 3 times a day Active metFORMIN (Glucophage) 500 MG tabletIndicati ons:Type 2 Diabetes Mellitus Take 1 tablet (500 mg) by mouth Once per day. 90 tablet 3 02/02/20 25 026 Active FREESTYLE LITE test stripIndicatio ns:New onset type 2 diabetes mellitus (CMS/HCC) Use to test blood sugar 1 times daily 100 each 12 02/02/20 25 026 Active Alcohol Swabs 70 % padsIndication s:New onset type 2 diabetes mellitus (CMS/HCC) Use to test blood sugar 1 times daily 100 each 02/02/20 25 Active Blood Glucose Monitoring Suppl (FreeStyle Irmo Lite) w/Device kitIndications :New onset type 2 diabetes mellitus (CMS/HCC) Use to test blood sugar 1 times daily 1 kit 02/02/20 25 Active FreeStyle lancetsIndicat ions:New onset type 2 diabetes mellitus (CMS/HCC) 1 each by Other route Once per day. USE TO TEST BLOOD SUGAR 1 TIMES DAILY 100 each 02/02/20 25 Active albuterol 108 (90 Base) MCG/ACT inhalerIndicat ions:Cough in adult patient Inhale 2 puffs every 6 (six) hours if needed for wheezing or shortness of breath. 18 g 2 03/09/20 25 025 Active predniSONE (Deltasone) 5 MG tablet in the morning. 05/11/20 14 025 Discontinued Active Problems Problem Noted Date Diagnosed Date Ulcerative colitis 01/28/2012 Resolved Problems Problem Noted Date Diagnosed Date Resolved Date Increased frequency of urination 2018 12/07/2023 Immunosuppression 06/23/2017 12/07/2023 Pneumonia of right lung due to infectious organism 10/03/2016 12/07/2023 Chronic low back pain 08/04/20162023 Encounters Date Type Department Care Team Description 03/09/2025 8:40 AM EDT Office Visit [facility] [address] [place] [id number] Cough in adult patient (Primary Dx) 03/09/2025 Travel 02/16/2025 3:30 PM EDT Telemedicine [address] [address] Jessenia Do RN New onset type 2 diabetes mellitus (CMS/HCC) 02/16/2025 Travel 02/16/[address] [address] Luther Dean MD telephone call (Left message due to no answer. Call was given due to a 3:30 PM telephone visit with the blue team nurses.) 02/01/[address] [address] Luther Dean MD New onset type 2 diabetes mellitus (CMS/HCC) 01/31/2025 9:30 AM EDT Office Visit [address] [address] Luther Dean MD PE (physical exam), routine (Primary Dx); Screening for cholesterol level; Screening for diabetes mellitus; Screening for cervical cancer; Encounter for screening mammogram for malignant neoplasm of breast; Vaccination refused by patient; Weight gain 01/31/2025 Results Follow-Up [address] [address] Luther Dean MD CBC auto differential, Comprehensive Metabolic Panel, Lipid Panel, Standard, Additional followed-up results: 2 01/31/2025 Travel 01/30/2025 Telephone [place] [address] [place] [address] NameLuther MD Chart Prep 01/23/2025 Patient Outreach [facility] [address] [place] [address] NameLuther MD Pre-visit Planning (SDOH screening negative and Tobacco screening negative) from Last 3 Months Immunizations Immunization Administration Dates Next Due HPV, Unspecified 09/15/2017 Hep B, Unspecified 09/15/2017 Influenza injectable quadriv alent IIV4 with preservative 06/23/2017,05/18/2015 Influenza injectable quadrivalent preservative f ree 08/04/2016 Influenza, Split (incl. purified surface antigen ) 07/22/2013 Influenza, seasonal, injectable, preservative fr ee 05/10/2014 MMR 09/15/2017 Pneumococcal Polysaccharide PPSV23 08/04/2016, Tdap 05/18/2015 Family History Medical History Relation Name Comments Pancreatic cancer Brother Breast cancer Mother's Sister Relation Name Status Comments Brother Mother's Sister Alive Social History Tobacco Use Types Packs/Day Years Used Date Smoking Tobacco: Never Smokeless Tobacco: Never Tobacco Cessation:Counseling Given: Not Answered Alcohol Use Standard Drinks/Week Comments Yes 0 (1 standard drink = 0.6 oz pur e alcohol) socially Depression Answer Date Recorded Patient Health Questionnaire-9 Score 0 12/07/2023 Patient Health Questionnaire-9 Score 0 12/07/2023 Last PHQ-9: Questionnaire Data Not on file 0 12/07/2023 Housing Stability Answer Date Recorded What is your housing situation today? I have adrián trejo 01/23/[address] you li ve. Do you have problems with any of the following? None of the above 01/23/2025 Food Insecurity Answer Date Recorded Within the past 12 months, y ou worried that your food would run out before you got money to buy more: Never True 01/23/2025 Within the past 12 months,th e food you bought just didn't last and you didn't have enough money to get more: Never True 04/2025 Transportation Answer Date Recorded In the past 12 months, has l ack of transportation kept you from medical appts, meetings, work or from getting things needed for daily living? No 01/23/2025 Utilities Answer Date Recorded In the past 12 months, has t he electric, gas, oil or water company threatened to shut off services in your home? No 01/23/2025 Depression Answer Date Recorded Patient Health Questionnaire-2 Score 0 12/07/2023 Internet Access Answer Date Recorded Internet Access Q1 Yes 01/23/2025 Internet Access Q2 Not on file 01/23/2025 Comments Unknown Sex and Gender Information Value Date Recorded Sex Assigned at Female 06/16/2022 10:17 AM EDT Legal Sex Female 10:17 AM EDT Gender Identity Female 06/16/2022 10:17 AM EDT Sexual Orientation Straight 06/16/2022 10 :17 AM EDT Last Filed Vital Signs Vital Sign Reading Time Taken Comments Blood Pressure 130/67 03/09/2025 8:53 AM EDT Pulse 87 03/09/2025 8:53 AM EDT Temperature 36.7 C (98.1 F) 03/09/2025 8:53 AM EDT Respiratory Rate 18 03/09/2025 8:53 AM EDT Oxygen Saturation 98% 03/09/2025 8:53 AM EDT Inhaled Oxygen Concentration - - Weight 73.9 kg (163 lb) 03/09/2025 8:53 AM EDT Height 154.9 cm (5' 1 ) 01/31/2025 9:34 AM EDT Body Mass Index 30.8 01/31/2025 9:34 AM EDT Plan of Treatment Health Maintenance Due Date Last Done Comments CT Colonography 1970 FIT DNA/Cologuard 1970 FIT 1970 FOBT 1970 HIV Screening 1970 Sigmoidoscopy 1970 Diabetes: Foot Exam 1980 Eye Exam 1980 Hepatitis C Screening 1988 Diabetes: Urine Protein Screening 1989 Pap Smear 1991 Cervical Cancer Screening 2000 HPV/Cotest 2000 Pneumococcal Vaccine: 50+ Years (2 of 2 - PCV) 08/04/2017 08/04/2016, 05/10/2014 Hepatitis B Vaccines (2 of 3 - 19+ 3-dose series) 10/13/2017 09/15/2017 Zoster Vaccines (1 of 2) 2020 Mammogram 04/30/2022 04/30/2020, 07/17, 06/22/2018 COVID-19 Vaccine ( season) 2024 Colonoscopy 11/03/2024 11/03/2022 Colorectal Cancer Screening 11/03/2024 Depression Screening 12/06/2024 12/07/2023, 12/07/19 Influenza Vaccine (#1) 2025 7, 08/04/2016, 05/18/2015, Additional history exists DTaP/Tdap/Td Vaccines (2 - Td or Tdap) 05/18/2025 05/18/2015 Diabetes: Hemoglobin A1C 08/03/2025 02/01/2025 SDOH Screening 01/23/2026 01/23/2025 Alcohol/Substance Use Screening 01/31/2026 01/31/2025 Disability Screening 01/31/2026 01/31/2025 Lipid Panel 01/31/2026 01/31/2025 Tobacco Screening 03/09/2026 03/09/2025 RSV Patients and Patients Aged 60 years or older (1 - 1-dose 75+ series) 2045 HPV Vaccines Aged Out 09/15/2017 No longer eligi ble based on patient's age to complete this topic HIB Vaccines Aged Out No longer eligi ble based on patient's age to complete this topic Hepatitis A Vaccines Aged Out No long er eligible based on patient's age to complete this topic IPV Vaccines Aged Out No longer eligi ble based on patient's age to complete this topic Meningococcal B Vaccine Aged Out No l onger eligible based on patient's age to complete this topic Meningococcal Vaccine Aged Out No reema khoi eligible based on patient's age to complete this topic RSV under 20 months Aged Out No longe r eligible based on patient's age to complete this topic Rotavirus Vaccines Aged Out No longer eligible based on patient's age to complete this topic Procedures Procedure Name Priority Date/Time Associated Diagnosis Comments POCT INFLUENZA B (ID NOW RAPID MOLECULAR) Routine 03/09/2025 9:08 AM EDT Cough in adult patient POCT INFLUENZA A (ID NOW RAPID MOLECULAR) Routine 03/09/2025 9:08 AM EDT Cough in adult patient POCT RAPID COVID ANTIGEN Routine 03/09/2025 9:07 AM EDT Cough in adult patient HEMOGLOBIN A1C Routine 02/01/2025 8:50 AM EDT Hyperglycemia TSH W/REFLEX TO FT4 Routine 01/31/2025 1 0:06 AM EDT PE (physical exam), routine Screening for cholesterol level Screening for diabetes mellitus Screening for cervical cancer Encounter for screening mammogram for malignant neoplasm of breast Vaccination refused by patient Weight gain LIPID PANEL, STANDARD Routine 01/31/2025 10:06 AM EDT PE (physical exam), routine Screening for cholesterol level Screening for diabetes mellitus Screening for cervical cancer Encounter for screening mammogram for malignant neoplasm of breast Vaccination refused by patient Weight gain COMPREHENSIVE METABOLIC PANEL Routine 01/31/2025 10:06 AM EDT PE (physical exam), routine Screening for cholesterol level Screening for diabetes mellitus Screening for cervical cancer Encounter for screening mammogram for malignant neoplasm of breast Vaccination refused by patient Weight gain CBC WITH AUTO DIFFERENTIAL Routine 01/31/2025 10:06 AM EDT PE (physical exam), routine Screening for cholesterol level Screening for diabetes mellitus Screening for cervical cancer Encounter for screening mammogram for malignant neoplasm of breast Vaccination refused by patient Weight gain HM COLONOSCOPY Routine 11/03/2022 6:56 PM EDT BI MAMMOGRAM DIAGNOSTIC BILATERAL Routine 04/30/2020 9:50 AM EDT from Last 3 Months or Most Recently Relevant to Health Maintenance Results * Influenza B (ID NOW Rapid Molecular) (03/09/2025 9:08 AM EDT) Influenza B Negative Negative, Indeterminate [facility] Swab 03/09/2025 9:08 AM EDT us Arthur Eagle MD POINT OF CARE TEST ENTER/EDIT OR DERABLES Final Result [facility] [address] [place] [address] [phone] * Influenza A (ID NOW Rapid Molecular) (03/09/2025 9:08 AM EDT) Pathologist [facility] Influenza A Negative Negative, Indeterminate [facility] Swab 03/09/2025 9:08 AM EDT Arthur Eagle MD POINT OF CARE TEST ENTER/EDIT OR DERABLES Final Result [facility] [address] [place] [address] [phone] * POCT Rapid COVID Ag (03/09/2025 9:07 AM EDT) Pathologist [facility] Rapid COVID Ag Negative Swab 03/09/2025 9:07 AM EDT Arthur Eagle MD POINT OF CARE TEST ENTER/EDIT OR DERABLES Final Result * (ABNORMAL) Hemoglobin A1c (02/01/2025 8:50 AM EDT) Pathologist [facility] Hemoglobin A1c 6.5(H) <6.0 % [facility] Comment:Hemoglobin A1C Refer ence Range Adults: 4.8 - 6.0 % Non diabetic: < 6.0 % Goal: < 7.0 %Additional Action Suggested: > 8.0 %Note: Hemoglobin A1c results are invalid for patients with abnormal amounts of HbF. Blood transfusions may impact the HbA1c concentration in the patient sample. Estimated Average Glucose 140 mg/dL [facility] Comment:eAG = Estimated ave rage glucose which is %A1C expressed asaverage glucose, using the formula of the H1R-AfatprdZkrrjet Glucose study (ADAG), Diabetes Care, Vol.31,#8,Mar. 2007 Blood Venous blood specimen / Unknown 02/01/2025 8:50 AM EDT 02/01/2025 11:30 AM EDT us Luther Dean MD LAB BLOOD ORDERABLES Final Resul t Performing Organization Address [facility] Co de Phone Number [facility] [address] [place] [address] [phone] * TSH W/Reflex to FT4 (01/31/2025 10:06 AM EDT) Pathologist [facility] TSH reflex Free T4 1.66 0.32 - 4.0 uIU/mL [facility] Blood Venous blood specimen / Unknown 01/31/2025 10:06 AM EDT 01/31/2025 11:45 AM EDT us Luther Dean MD LAB BLOOD ORDERABLES Final Resul t Performing Organization Address [facility] Co de Phone Number [facility] [address] [place] [address] [phone] * CBC auto differential (01/31/2025 10:06 AM EDT) [facility] White Blood Count 8.0 4.8 - 10.8 X10*3/uL [facility] Red Blood Count 4.65 4.20 - 5.50 X10*6/uL [facility] Hemoglobin 13.7 12.0 - 16.0 g/dl [facility] Hematocrit 42.7 37.0 - 47.0 % [facility] Mean Corpuscular Volume 91.8 80.0 - 98.0 fL [facility] Mean Corpuscular Hemoglobin 29.5 27.0 - 33.0 pg [facility] Mean Corpuscular HGB Conc 32.1 31.0 - 35.0 g/dl [facility] Red Cell Distribution Width 14.2 11.0 - 16.0 % [facility] Platelet Count 266 160 - 400 X10*3/uL [facility] Mean Platelet Volume 12.0 9.4 - 12.3 fL [facility] Neutrophils Percent Auto 66.8 45 - 73 % [facility] Imm Gran Pct Auto 0.3 0.0 - 0.4 % [facility] Lymphocytes Percent Auto 24.5 20 - 40 % [facility] Monocytes Percent Auto 7.0 2 - 11 % [facility] Eosinophils Percent Auto 0.9 0 - 4 % [facility] Basophils Percent Auto 0.5 0 - 2 % [facility] NRBC Pct Auto 0.0 0.0 - 0.2 /100WBC [facility] Neutrophils Absolute Auto 5.3 2.0 - 8.3 x10*3/uL [facility] Imm Gran Abs Auto 0.02 0.00 - 0.03 X10*3/uL [facility] Lymphocytes Absolute Auto 2.0 1.2 - 4.9 X10*3/uL [facility] Monocytes Absolute Auto 0.6 0.1 - 1.2 X10*3/uL [facility] Eosinophils Absolute Auto 0.1 0.0 - 0.4 X10*3/uL [facility] Basophils Absolute Auto 0.0 0.0 - 0.2 X10*3/uL [facility] NRBC Abs Auto 0.000 0.0 - 0.012 X10*3/uL [facility] Blood Venous blood specimen / Unknown 01/31/2025 10:06 AM EDT 01/31/2025 11:34 AM EDT us Luther Name MD LAB BLOOD ORDERABLES Final Resul t [facility] [address] [place] [phone] * (ABNORMAL) Lipid Panel, Standard (01/31/2025 10:06 AM EDT) Triglycerides 170(H) <150 mg/dL [facility] Comment:Desirable Triglyceri de: less than 150 mg/dLBorderline High Triglyceride 150-199 mg/dLHigh Triglyceride: 200-499 mg/dLVery High Triglyceride: greater than or equal to 5OO mg/dL Cholesterol 247(H) <200 mg/dL [facility] Comment:Desirable Cholestero l: less than 200 mg/dLBorderline High Cholesterol: 200-239 mg/dLHigh Cholesterol: greater than 239 mg/dL LDL Cholesterol Calculated 161(H) <100 mg/dL [facility] Comment:Desirable LDL: less than 100 mg/dLNear Optimal/Above Optimal LDL: 110- 129 mg/dLBorderline High LDL: 130-159 mg/dLHigh LDL: 160-189 mg/dLVery High LDL: greater than or equal to 190 mg/dL HDL Cholesterol 52 >40 mg/dL [facility] Comment:Desirable HDL: great er than 40 mg/dL Note: This HDL assay may give artificially low results in patients with liver disease. Blood Venous blood specimen / Unknown 01/31/2025 10:06 AM EDT 01/31/2025 11:45 AM EDT us Luther Name LAB BLOOD ORDERABLES Final Resul t [facility] [address], [place] [phone] * (ABNORMAL) Comprehensive Metabolic Panel (01/31/2025 10:06 AM EDT) Sodium 143 135 - 145 mmol/L [facility] Potassium 4.5 3.3 - 5.1 mmol/L [facility] Chloride 108 96 - 108 mmol/L [facility] Carbon Dioxide 28 22 - 29 mmol/L [facility] Anion Gap 12 12 - 20 [facility] Urea Nitrogen (BUN) 15 9 - 16 mg/dL [facility] Creatinine, Serum 0.80 0.5 - 1.4 mg/dL [facility] Estimated Glomerular Filt Rate >60 [facility] Comment:Chronic Kidney Disea se: Estimated GFR < 60 mL/min/1.99o3Sfezvs Kidney Disease: Estimated GFR < 15 mL/min/1.73m2 Glucose 145(H) 60 - 115 mg/dL [facility] Calcium 9.1 8.4 - 10.2 mg/dL [facility] Bilirubin, Total 0.3 0.0 - 1.0 mg/dL [facility] Aspartate Amino Transferase 21 5 - 31 U/L [facility] Alanine Aminotransferase 42(H) 0 - 31 U/L [facility] Total Protein 7.0 6.5 - 8.0 g/dL [facility] Albumin Level 4.2 3.5 - 5.0 g/dL [facility] Alkaline Phosphatase 87 39 - 117 U/L [facility] Blood Venous blood specimen / Unknown 01/31/2025 10:06 AM EDT 01/31/2025 11:45 AM EDT us Luther Dean MD LAB BLOOD ORDERABLES Final Resul t [facility] [address] [place] [phone] * Hm Colonoscopy (11/03/2022 6:56 PM EDT) Historical Provider HEALTH MAINTENANCE Final Result * 3D BILATERAL DIAGN MAMMO 1 (04/30/2020 9:50 AM EDT) Anatomical Region Laterality Modality Breast Bilateral Mammography 04/30/2020 9:50 AM EDT Narrative 04/30/2020 9:52 AM EDT Refer to the Notes tab for result details [facility] Procedure: 3D BILATERAL DIAGN MAMMO 1 Procedure Note Provider, MD Humza - 11/08/2022 Refer to the Notes tab for result details [facility] Procedure: 3D BILATERAL DIAGN MAMMO 1 Luthermartinez Dean MD IMG BI PROCEDURES Final Result from Last 3 Months or Most Recently Relevant to Health Maintenance Insurance [facility] [place] 3 Care Teams Legal Biller Relationship Specialty Start Date End Date Name, MD Luther [address] [place] [id number] PCP - General Family Medicine 11/21/15
--- OUTSIDE RECORDS SUMMARY | 2025-03-09 09:50 | XMS_ITS | Patient Health Record ---
Author Organization [facility] Address [address] [place] [address] Care Team Providers Care Adjunct History Instructor Name Role Phone Name Luther AUSTIN Primary Care Provider Jackson Yoo Unavailable [phone] ANTONIA POWERS Unavailable Unavailable Allergies Allergen (clinical drug ingredient) Drug/Non Drug Allergy documented on EMR Reaction Allergy Type Onset Date Status infliximab Remicade Unknown Drug Allergy Active Results Component Value Reference Range Notes T Spot TB Reviewed date:08/26/2024 05:46:54 PM Interpretation: Performing Lab:[facility], [address] [place] [id number] Notes/Report: TSpotTB Negative Negative A negative test result does not exclude the possibility of exposure to or infection with Mycobacterium tuberculosis (M. tuberculosis). Patients with recent exposure to TB infected individuals exhibiting a negative T-SPOT.TB result should be considered for retesting within 6 weeks or if other relevant clinical symptoms indicate. Results from T-SPOT.TB testing must be used in conjunction with each individual's epidemiological history, current medical status, and results of other diagnostic evaluations. The T-SPOT.TB test is qualitative and results are reported as positive, borderline, or negative, given that the test controls perform as expected. In line with the Centers for Disease Control and Prevention's 2010 recommendation to report quantitative measurements alongside the qualitative result, the laboratory provides spot counts for informational purposes only. The T-SPOT.TB test should not be interpreted as a quantitative test. TS Panel A 0 TS Panel B 0 TS Negative Control Passed TS Positive Control Passed For additional information, please refer to http://education.[employer].com/faq/HRI998 (This link is being provided for informational/ educational purposes only.) THIS TEST WAS PERFORMED AT: [facility] [address] [place] [address] KANDI BARROSO MD,PHD Complete Blood Count Auto Di ff Reviewed date:08/23/2024 04:35:44 PM Interpretation: Performing Lab:[facility], [address] [place] [phone] Notes/Report: White Blood Count 4.7 4.8-10.8 X10*3/uL [...] te Reviewed date:08/23/2024 04:35:51 PM Interpretation: Performing Lab:[address] [phone] Notes/Report: Erythrocyte Sedimentation Rate 24 0-20 MM/HR Patients with polycythemia and many hemoglobin abnormalities may have depressed sed rates whereas patients with anemia may have elevated sed rates. Liver Panel Reviewed date:08/23/2024 04:36:08 PM Interpretation: Performing Lab:[address] [phone] Notes/Report: Bilirubin Total 0.3 0.0-1.0 mg/dL Bilirubin Direct 0.1 0.0-0.5 mg/dL Aspartate Amino Transferase 29 5-31 U/L Alanine Aminotransferase 46 0-31 U/L Total Protein 7.3 6.5-8.0 g/dL Albumin Level 4.0 3.5-5.0 g/dL Alkaline Phosphatase 98 39-117 U/L Basic Metabolic Panel Reviewed date:08/23/2024 04:36:23 PM Interpretation: Performing Lab:[address] [phone] Notes/Report: Sodium 144 135-145 mmol/L Potassium 4.7 [...] Protein Reviewed date:08/23/2024 04:36:31 PM Interpretation: Performing Lab:[address] [phone] Notes/Report: C Reactive Protein 1.77 < or = 0.50 mg/dL Hepatitis B Profile Reviewed date:08/25/2024 09:40:13 PM Interpretation: Performing Lab:[address] [phone] Notes/Report: Hepatitis B Surface Antibody NONREACTIVE Nonreactive Nonreactive: < 8.00 mIU/mL Hepatitis B Core Antibody Nonreactive Nonreactive Hepatitis B Surface Antigen Negative Negative Reason For Referral No Information Medications Medication SIG (Take, Route, Fr equency, Duration) Notes Start Date End Date Status predniSONE 5 MG 8 TABLETS(40mg) BY M OUTH DAILY X 1 WEEK, THEN DECREASE DAILY DOSE BY 1 TAB (5mg)EACH WEEK Orally Once a day for 56 days Active Colazal 750 MG 3 capsules Orally Th ree times a day for 30 days 10/28/2011 Active Immunizations Vaccine Route Administration Date Status Comme nts Influenza Unknown 09/11/2022 Refused Social History Alcohol Screen Question Answer Notes Did you have a drink containing alcohol in the p ast year? No Points 0 Interpretation Negative Section Notes: Nonsmoker; no alcohol Nonsmoker; no alcohol Nonsmoker; no alcohol Nonsmoker; no alcohol Nonsmoker; no alcohol Nonsmoker; no alcohol Nonsmoker; no alcohol Nonsmoker; no alcohol Nonsmoker; no alcohol Nonsmoker; no alcohol Nonsmoker; no alcohol Nonsmoker; no alcohol Nonsmoker; no alcohol Nonsmoker; no alcohol Nonsmoker; no alcohol Nonsmoker; no alcohol Nonsmoker; no alcohol Nonsmoker; no alcohol Problems Problem Type SNOMED Code ICD Code Onset Dates Problem Status W/U Status Risk Notes Problem 149113419 Encounter for screening for malignant neoplasm of colon (Z12.11) Active confirmed Problem 289364332 History of adenomatous polyp of colon (Z86.010) Active confirmed Problem History of polyp of colon (situation) (097811557) Personal history of colonic polyps (Z86.010) Active confirmed Problem 464654066 Ulcerative (chronic) pancolitis without complications (K51.00) Active confirmed Problem 470303866 Nausea (R11.0) Active confirmed Problem 88667806 Rectal bleed (K62.5) Active confirmed Problem 17491686 Ulcerative colitis without complications, unspecified location (K51.90) Active confirmed Problem 051445487 Ulcerative pancolitis without complication (K51.00) Active confirmed Problem Ulcerative colitis (59734795) Ulcerative colitis (K51.90) Active confirmed Problem 424275175 Abdominal pain, generalized (R10.84) Active confirmed Problem 65177471 Diarrhea, unspecified type (R19.7) Active confirmed Problem 138528426 Ulcerative chronic pancolitis without complications (K51.00) Active confirmed Vital Signs Blood pressure diastolic 77 mm Hg 12/29/2024 Height 60.5 in 12/29/2024 Blood pressure systolic 111 mm Hg 12/29/2024 Weight 169 lbs 12/29/2024 BMI 32.46 kg/m2 12/29/2024 Encounters Encounter Location Date Provider Diagnosis [facility] [address] [place] [address] 08/23/2024 Jackson Gaitan Ulcerative pancoliti s without complication K51.00 ; Diarrhea, unspecified type R19.7 and Rectal bleed K62.5 [facility] [address] [place] [address] 12/29/2024 Jackson Gaitan Ulcerative pancoliti s without complication K51.00 ; Diarrhea, unspecified type R19.7 and Rectal bleed K62.5 [facility] [address] [place] [phone] 04/04/2024 Jackson Gaitan [facility] [address] [place] [phone] 11/08/2024 Jcakson Gaitan Assessments Encounter Date Diagnosis (ICD Code) Assessment Notes Treatment Notes Treatment Clinical Notes Section Notes 08/23/2024 Ulcerative pancolitis without complication (ICD-10 - K51.00) Overall, Kristina appears well from a clinical standpoint but is clearly having a flare of her colitis again that has been ongoing for at least 2 or 3 months now. We did review this may very well be related to her noncompliance with her medication. We did review the importance of compliance with medication and office visits, as well as the need to contact me if she has problems with her colitis or needs refills on her medication. In any event, given her symptomatology I shall check the below laboratories as well stool specimens to rule out any type of an enteric infection, including C. difficile. I shall start her on a course of prednisone with a 5 mg per week taper and will also resume her balsalazide at 2.25 g t.i.d. I advised her to start both of those simultaneously and then to remain on the balsalazide long-term once the prednisone has been completed. Again, I advised her of the importance of compliance with her medications. We did discuss the potential role of resuming a biologic agent if she continues to have frequent flareups. I shall check a hepatitis B profile and TB test in that regard in the event a biologic agent is needed at some point. We also reviewed that I would like her to undergo a followup colonoscopy for screening later this year given her last colonoscopy approaching the two-year shannon, the long-standing history of her underlying colitis, and the previous history of adenomas. However, I first want to get her current flare under control and will plan to see her in several months for a followup visit prior to scheduling the colonoscopy. I did advise her to call me prior to that office visit if she has any persistent or worsening complaints in regard to the colitis. Kristina understood all of this quite well and was comfortable with this plan. Thank you again for allowing me to participate in Kristina's care. I shall continue to keep you advised of her progress. 08/23/2024 Diarrhea, unspecified type (ICD-10 - R19.7) Overall, Kristina appears well from a clinical standpoint but is clearly having a flare of her colitis again that has been ongoing for at least 2 or 3 months now. We did review this may very well be related to her noncompliance with her medication. We did review the importance of compliance with medication and office visits, as well as the need to contact me if she has problems with her colitis or needs refills on her medication. In any event, given her symptomatology I shall check the below laboratories as well stool specimens to rule out any type of an enteric infection, including C. difficile. I shall start her on a course of prednisone with a 5 mg per week taper and will also resume her balsalazide at 2.25 g t.i.d. I advised her to start both of those simultaneously and then to remain on the balsalazide long-term once the prednisone has been completed. Again, I advised her of the importance of compliance with her medications. We did discuss the potential role of resuming a biologic agent if she continues to have frequent flareups. I shall check a hepatitis B profile and TB test in that regard in the event a biologic agent is needed at some point. We also reviewed that I would like her to undergo a followup colonoscopy for screening later this year given her last colonoscopy approaching the two-year shannon, the long-standing history of her underlying colitis, and the previous history of adenomas. However, I first want to get her current flare under control and will plan to see her in several months for a followup visit prior to scheduling the colonoscopy. I did advise her to call me prior to that office visit if she has any persistent or worsening complaints in regard to the colitis. Kristina understood all of this quite well and was comfortable with this plan. Thank you again for allowing me to participate in Kristina's care. I shall continue to keep you advised of her progress. 12/29/2024 Ulcerative pancolitis without complication (ICD-10 - [...] to keep you advised of her progress. 08/23/2024 Rectal bleed (ICD-10 - K62.5) Overall, Kristina appears well from a clinical standpoint but is clearly having a flare of her colitis again that has been ongoing for at least 2 or 3 months now. We did review this may very well be related to her noncompliance with her medication. We did review the importance of compliance with medication and office visits, as well as the need to contact me if she has problems with her colitis or needs refills on her medication. In any event, given her symptomatology I shall check the below laboratories as well stool specimens to rule out any type of an enteric infection, including C. difficile. I shall start her on a course of prednisone with a 5 mg per week taper and will also resume her balsalazide at 2.25 g t.i.d. I advised her to start both of those simultaneously and then to remain on the balsalazide long-term once the prednisone has been completed. Again, I advised her of the importance of compliance with her medications. We did discuss the potential role of resuming a biologic agent if she continues to have frequent flareups. I shall check a hepatitis B profile and TB test in that regard in the event a biologic agent is needed at some point. We also reviewed that I would like her to undergo a followup colonoscopy for screening later this year given her last colonoscopy approaching the two-year shannon, the long-standing history of her underlying colitis, and the previous history of adenomas. However, I first want to get her current flare under control and will plan to see her in several months for a followup visit prior to scheduling the colonoscopy. I did advise her to call me prior to that office visit if she has any persistent or worsening complaints in regard to the colitis. Kristina understood all of this quite well and was comfortable with this plan. Thank you [...] advised of her progress. Plan Of Treatment Pending Test Test Name Order Date CHEM 7 PROFILE 08/23/2024 CHEM 7 PROFILE 12/09/2016 CHEM 7 PROFILE 05/20/2020 LIVER PROFILE 05/20/2020 LIVER PROFILE 02/09/2016 LIVER PROFILE 12/30/2012 LIVER PROFILE 08/05/2013 LIVER PROFILE 05/12/2018 LIVER PROFILE 10/18/2020 LIVER PROFILE 12/10/2017 LIVER PROFILE 08/23/2024 LIVER PROFILE 06/24/2020 LIVER PROFILE 05/30/2014 LIVER PROFILE 10/17/2014 LIVER PROFILE 12/09/2016 LIVER PROFILE 08/29/2016 LIVER PROFILE 09/11/2022 LIVER PROFILE 08/18/2012 LIVER PROFILE 05/18/2021 LIVER PROFILE 10/09/2011 LIVER PROFILE 08/22/2020 LIVER PROFILE 03/07/2015 IRON + IBC (FE) 10/09/2011 FERRITIN 10/09/2011 CRP 08/23/2024 CRP 09/11/2022 CBC w DIFF 05/18/2021 CBC w DIFF 08/22/2020 CBC w DIFF 09/11/2022 CBC w DIFF 03/07/2015 CBC w DIFF 05/20/2020 CBC w DIFF 02/09/2016 CBC w DIFF 12/30/2012 CBC w DIFF 08/05/2013 CBC w DIFF 05/12/2018 CBC w DIFF 10/09/2011 CBC w DIFF 10/18/2020 CBC w DIFF 12/10/2017 CBC w DIFF 06/24/2020 CBC w DIFF 05/30/2014 CBC w DIFF 10/17/2014 CBC w DIFF 12/09/2016 CBC w DIFF 08/23/2024 CBC w DIFF 08/29/2016 CBC w DIFF 08/18/2012 SED RATE (ESR) 08/23/2024 SED RATE (ESR) 09/11/2022 HEPATITIS B PROFILE 08/23/2024 HEPATITIS B SURFACE ANTIGEN 01/22/2012 PROMETHEUS THIOPURINE METABOLITES (TPMT) 12/09/2016 PROMETHEUS THIOPURINE METABOLITES (TPMT) 08/29/2016 PROMETHEUS THIOPURINE METABOLITES (TPMT) 02/09/2016 STOOL WBC 09/11/2022 C DIFFICILE RFLX PCR 12/29/2024 C DIFFICILE RFLX PCR 08/23/2024 C DIFFICILE RFLX PCR 09/11/2022 Calprotectin, Fecal 12/29/2024 Calprotectin, Fecal 08/23/2024 GI PANEL 08/23/2024 GI PANEL 09/11/2022 GI PANEL 09/15/2022 GI PANEL 12/29/2024 Future Test Test Name Order Date COLONOSCOPY 01/15/2016 COLONOSCOPY 12/09/2016 COLONOSCOPY 05/12/2018 COLONOSCOPY 11/02/2019 COLONOSCOPY 09/11/2022 Next Appt Details Provider Name:Jackson Gaitan , 07/04/2025 09:10:00 AM, [address] [place] [address], [place] [address], [place], [address], Insurance Providers Payer Name Payer Address Payer Phone Subscriber Number Group Number Insured Name Patient Relationship to Insured Coverage Start Date Coverage End Date [facility] [address] [address] [place], [place] [phone] [id number] KRISTINA RAPHAEL Self - patient is the insured Medical (General) History Medical History History ICD Code Ulcerative colitis, dx'd in approx. 2000 in [place]--she was started on Humira in 2012 after she developed an allergic reaction to the Remicade--she stopped her Humira in the early part of 2015 Colonoscopy June 2018 Le ft colon > right colon-no dysplasia, no adenomas-greatest activity in the rectum and sigmoid Denies GA,DM,CVA,Lung disease,renal dise ase Allergic reaction to Remicad e infusion on 11/09/12 with hives and rash-Rx'd with Benadryl and Hydrocortisone She was admitted to [facility] at t he end of April 2014 [...] from the cecum. Pneumonia in 10/2019-- on [place] xicillin started on 10/28/2019. She describes a [...] on balsalazide and azathioprine at that time. Colonoscopy in October of 2022 revealed a pancolitis with mild to moderate activity. All biopsies were negative for dysplasia. There was no evidence of any polyps Surgical History Surgery Date(Month/Year) Hernia
[2025-03-09 11:25] LABS: MANUAL DIFF FLAG NO
[2025-03-09 11:33] LABS: Hematocrit 43.3 % (37.0-47.0); Hemoglobin 13.9 g/dl (12.0-16.0); Imm Gran Abs Auto 0.02 X10*3/uL (0.00-0.03); Imm Gran Pct Auto 0.3 % (0.0-0.4); Lymphocytes Absolute Auto 1.6 X10*3/uL (1.2-4.9); Mean Corpuscular HGB Conc 32.1 g/dl (31.0-35.0); Mean Corpuscular Hemoglobin 28.8 pg (27.0-33.0); Mean Corpuscular Volume 89.8 fL (80.0-98.0); NRBC Abs Auto 0.000 X10*3/uL (0.0-0.012); NRBC Pct Auto 0.0 /100WBC (0.0-0.2); Platelet Count 368 X10*3/uL (160-400); Red Blood Count 4.82 X10*6/uL (4.20-5.50); White Blood Count 6.4 X10*3/uL (4.8-10.8)
== END 2025-03-09 09:19 | disposition home or self-care (01) ==
LOC: HO.HHCX 09:18
PROVIDERS: PCP Internal Medicine Geriatric Medicine; Visit Provider Family Medicine
DX: R05.9 Cough, unspecified (principal)
CPT/HCPCS: 36415; 71046; 85025; 85652; 86140

== ENCOUNTER → 2025-03-09 09:18 | Outpatient (BNV) | payer OTHER, SELFPAY | PROVIDERS: PCP Internal Medicine Geriatric Medicine; Visit Provider Radiology Diagnostic Radiology | DX: R05.3 Chronic cough (principal) | CPT/HCPCS: 71046 ==

== ENCOUNTER 2025-03-21 15:57 | Outpatient (REF) | payer OTHER, SELFPAY ==
--- OUTSIDE RECORDS SUMMARY | 2025-03-21 16:10 | XMS_ITS | Clinical Summary ---
Author Organization [employer] Address [address] [place] [address] 7[address] [place] [address] Care Team Providers Care Garbage Collector Name Role Phone Name, Luther AUSTIN Primary Care Provider [phone] Allergies Active Allergy Reactions Criticality Noted Date [...] 25 Active Blood Glucose Monitoring Suppl (FreeStyle [place] Lite) w/Device kitIndications :New onset type 2 diabetes mellitus (CMS/HCC) Use to test blood sugar 1 times daily 1 kit 02/02/20 25 Active albuterol 108 (90 Base) MCG/ACT inhalerIndicat ions:Cough in adult patient Inhale 2 puffs every 6 (six) hours if needed for wheezing or shortness of breath. 18 g 2 03/09/20 25 025 Active FreeStyle lancetsIndicat ions:New onset type 2 diabetes mellitus (CMS/HCC) 1 EACH BY OTHER ROUTE ONCE PER DAY. USE TO TEST BLOOD SUGAR 1 TIMES DAILY 100 each 11 03/14/20 25 Active predniSONE (Deltasone) 5 MG tablet in the morning. 05/11/20 14 025 Discontinued FreeStyle lancetsIndicat ions:New onset type 2 diabetes mellitus (CMS/HCC) 1 each by Other route Once per day. USE TO TEST BLOOD SUGAR 1 TIMES DAILY 100 each 02/02/20 25 025 Discontinued Active Problems Problem Noted Date Diagnosed Date Ulcerative colitis 01/28/2012 Resolved Problems Problem Noted Date Diagnosed Date Resolved Date Increased frequency of urination 2018 12/07/2023 Immunosuppression 06/23/2017 12/07/2023 Pneumonia of right lung due to infectious organism 10/03/2016 12/07/2023 Chronic low back pain 08/04/20162023 Encounters Date Type Department Care Team Description 03/13/2025 Refill [facility] [address] [place] [phone] Luther Dean MD New onset type 2 diabetes mellitus (CMS/HCC) 03/09/2025 8:40 AM EDT Office Visit [facility] [address] [place] [phone] Arthur Eagle MD Cough in adult patient (Primary Dx); New onset type 2 diabetes mellitus (CMS/HCC); Other ulcerative colitis without complication (CMS/HCC) 03/09/2025 Travel 02/16/2025 3:30 PM EDT Telemedicine [facility] [address] [place] [phone] Jessenia Do RN New onset type 2 diabetes mellitus (CMS/HCC) 02/16/2025 Travel 02/16/2025 Telephone [facility] [address] [place] [address] [phone] Luther Dean MD telephone call (Left message due to no answer. Call was given due to a 3:30 PM telephone visit with the blue team nurses.) 02/01/2025 Refill [facility] [address] [place] [phone] Luther Dean MD New onset type 2 diabetes mellitus (CMS/HCC) 01/31/2025 9:30 AM EDT Office Visit [facility] [address] [place] [phone] Luther Dean MD PE (physical exam), routine (Primary Dx); Screening for cholesterol level; Screening for diabetes mellitus; Screening for cervical cancer; Encounter for screening mammogram for malignant neoplasm of breast; Vaccination refused by patient; Weight gain 01/31/2025 Results Follow-Up [facility] [address] [place], [place] [address] [address] Luther Dean MD CBC auto differential, Comprehensive Metabolic Panel, Lipid Panel, Standard, Additional followed-up results: 2 01/31/2025 Travel 01/30/2025 Telephone [facility] [place] [address] Luther Dean MD Chart Prep 01/23/2025 Patient Outreach [facility] [place] [address] Luther Dean MD Pre-visit Planning (SDOH screening negative and [...] Date Last Done Comments CT Colonography 1970 Dental Oral Exam 1970 Dental Prophylaxis 1970 Dental X-Ray: Bitewings 1970 Dental X-Ray: Full Mouth 1970 FIT DNA/Cologuard 1970 FIT 1970 FOBT [...] 04/30/2022 04/30/2020, 07/17, 06/22/2018 COVID-19 Vaccine ( - season) 2024 Colonoscopy 11/03/2024 11/03/2022 Colorectal Cancer Screening 11/03/2024 Depression Screening 12/06/2024 12/07/2023, 12/07/19 24 Influenza Vaccine (#1) 2025 7, 08/04/2016, 05/18/2015, [...] Procedure Name Priority Date/Time Associated Diagnosis Comments CBC WITH AUTO DIFFERENTIAL Routine 03/09/2025 9:50 AM EDT Cough in adult patient C-REACTIVE PROTEIN Routine 03/09/2025 9: 50 AM EDT Cough in adult patient SED RATE BY MODIFIED WESTERGREN Routine 03/09/2025 9:50 AM EDT Cough in adult patient POCT INFLUENZA B (ID NOW RAPID MOLECULAR) Routine 03/09/2025 9:08 AM EDT Cough in adult patient POCT INFLUENZA A (ID NOW RAPID MOLECULAR) Routine 03/09/2025 9:08 AM EDT Cough in adult patient POCT RAPID COVID ANTIGEN Routine 03/09/2025 9:07 AM EDT Cough in adult patient XR CHEST 2 VIEWS Routine 03/09/2025 8:49 AM EDT Cough in adult patient HEMOGLOBIN [...] Recently Relevant to Health Maintenance Results * CBC auto differential (03/09/2025 9:50 AM EDT) Only the most recent of2 resultswithin the time period is included. White Blood Count 6.4 4.8 - 10.8 X10*3/uL [facility] Red Blood Count 4.82 4.20 - 5.50 X10*6/uL [facility] Hemoglobin 13.9 12.0 - 16.0 g/dl [facility] Hematocrit 43.3 37.0 - 47.0 % [facility] Mean Corpuscular Volume 89.8 80.0 - 98.0 fL [facility] Mean Corpuscular Hemoglobin 28.8 27.0 - 33.0 pg [facility] Mean Corpuscular HGB Conc 32.1 31.0 - 35.0 g/dl [facility] Red Cell Distribution Width 13.1 11.0 - 16.0 % [facility] Platelet Count 368 160 - 400 X10*3/uL [facility] Mean Platelet Volume 11.4 9.4 - 12.3 fL [facility] Neutrophils Percent Auto 63.9 45 - 73 % [facility] Imm Gran Pct Auto 0.3 0.0 - 0.4 % [facility] Lymphocytes Percent Auto 24.8 20 - 40 % [facility] Monocytes Percent Auto 9.1 2 - 11 % [facility] Eosinophils Percent Auto 1.4 0 - 4 % [facility] Basophils Percent Auto 0.5 0 - 2 % [facility] NRBC Pct Auto 0.0 0.0 - 0.2 /100WBC [facility] Neutrophils Absolute Auto 4.1 2.0 - 8.3 x10*3/uL [facility] Imm Gran Abs Auto 0.02 0.00 - 0.03 X10*3/uL [facility] Lymphocytes Absolute Auto 1.6 1.2 - 4.9 X10*3/uL [facility] Monocytes Absolute Auto 0.6 0.1 - 1.2 X10*3/uL [facility] Eosinophils Absolute Auto 0.1 0.0 - 0.4 X10*3/uL [facility] Basophils Absolute Auto 0.0 0.0 - 0.2 X10*3/uL [facility] NRBC Abs Auto 0.000 0.0 - 0.012 X10*3/uL [facility] Blood Venous blood specimen / Unknown 03/09/2025 9:50 AM EDT 03/09/2025 11:22 AM EDT Arthur Eagle MD LAB BLOOD ORDERABLES Final Resul t [facility] [address] [place] [phone] * (ABNORMAL) Sed Rate by Modified Westergren (03/09/2025 9:50 AM EDT) Erythrocyte Sedimentation Rate 34(H) 0 - 20 MM/HR [facility] Comment:Patients with polycy themia and many hemoglobin abnormalitiesmay have depressed sed rates whereas patients with anemiamay have elevated sed rates. Blood Venous blood specimen / Unknown 03/09/2025 9:50 AM EDT 03/09/2025 11:24 AM EDT Arthur Eagle MD LAB BLOOD ORDERABLES Final Resul t Performing Organization Address [facility] Co de Phone Number [facility] [address] [place] [phone] * (ABNORMAL) C-reactive Protein (03/09/2025 9:50 AM EDT) [facility] C Reactive Protein 3.86(H) < or = 0.50 mg/dL [facility] Blood Venous blood specimen / Unknown 03/09/2025 9:50 AM EDT 03/09/2025 11:22 AM EDT Arthur Eagle MD LAB BLOOD ORDERABLES Final Resul t Performing Organization Address [facility] Co de Phone Number [facility] [address] [place] [phone] * Influenza B (ID NOW Rapid Molecular) (03/09/2025 9:08 AM EDT) Pathologist [facility] Influenza B Negative Negative, Indeterminate [facility] Swab 03/09/2025 9:08 AM EDT Arthur Eagle MD POINT OF CARE TEST ENTER/EDIT OR DERABLES Final Result Performing Organization Address [facility] Co de Phone Number [facility] [address] [place] [phone] * Influenza A (ID NOW Rapid Molecular) (03/09/2025 9:08 AM EDT) [facility] Influenza A Negative Negative, Indeterminate [facility] Swab 03/09/2025 9:08 AM EDT Arthur Eagle MD POINT OF CARE TEST ENTER/EDIT OR DERABLES Final Result Performing Organization Address [facility] Co de Phone Number [facility] [address] [place] [address] [phone] * POCT Rapid COVID Ag (03/09/2025 9:07 AM EDT) Rapid COVID Ag Negative Swab 03/09/2025 9:07 AM EDT Arthur Eagle MD POINT OF CARE TEST ENTER/EDIT OR DERABLES Final Result * XR Chest 2 Views (03/09/2025 8:49 AM EDT) Anatomical Region Laterality Modality Chest Radiographic Naomi ging 03/09/2025 8:49 AM EDT Narrative 03/09/2025 9:54 AM EDT [address] [address] XRay Report Signed Patient: Sarah Aguilera MR#: [id number] 16 : 1970 Acct:[id number] Age/Sex: 54 / F ADM Date: 03/09/25 [facility]: Arthur Eagle MD Ordering Physician: Arthur Eagle MD Date of Service: 03/09/25 Procedure(s): XR chest 2V Accession Number(s): [id number] cc: Arthur Eagle MD; Name,Luther AUSTIN EXAMINATION: XR CHEST CLINICAL INFORMATION: Patient with 2-week duration of cough COMPARISON: 10/03/2016. TECHNIQUE: 2 views of the chest were obtained. FINDINGS: The cardiac, hilar, and mediastinal contours are normal. The lungs are clear bilaterally. There is no pneumothorax or pleural effusion. There is no focal osseous or soft tissue abnormality. XR/XR chest 2V IMPRESSION: Normal chest. Electronically signed by: Gil Zaidi MD 03/09/2025 09:51 AM EDT Dictated By: Gil Zaidi MD Signed By: <Electronically signed by Gil Zaidi MD in OV> 03/09/25 0951 DD/ 0849 TD/TT: 03/09/25 0900 Electronic Heat Seal Operator: Procedure Note Donotuseinterpreter, Image - 03/09/2025 [facility] [address] [place] [address] XRay Report Signed Patient: Sarah Aguilera CMR#: [id number] 16 : 1970Acct:[id number] Age/Sex: 54 / FADM Date: 03/09/25 Loc: [facility] Attending Dr: Arthur Eagle MD Ordering Physician: Arthur Eagle MD Date of Service: 03/09/25 Procedure(s): XR chest 2V Accession Number(s): [id number] cc: Arthur Eagle MD; Name,Luther AUSTIN EXAMINATION: XR CHEST CLINICAL INFORMATION: Patient with 2-week duration of cough COMPARISON: 10/03/2016. TECHNIQUE: 2 views of the chest were obtained. FINDINGS: The cardiac, hilar, and mediastinal contours are normal. The lungs are clear bilaterally. There is no pneumothorax or pleural effusion. There is no focal osseous or soft tissue abnormality. XR/XR chest 2V IMPRESSION: Normal chest. Electronically signed by: Gil Zaidi MD 03/09/2025 09:51 AM EDT Dictated By: Gil Zaidi MD Signed By: <Electronically signed by Gil Zaidi MD in OV> 03/09/25 0951 DD/ 0849 TD/TT: 03/09/25 0900 Electronic Heat Seal Operator: Arthur Eagle MD IMG XR PROCEDURES Edited Result - Final * (ABNORMAL) Hemoglobin A1c (02/01/2025 8:50 AM EDT) Hemoglobin A1c 6.5(H) <6.0 % [facility] Comment:Hemoglobin A1C Refer ence Range Adults: 4.8 - 6.0 % Non diabetic: < 6.0 % Goal: < 7.0 %Additional Action Suggested: > 8.0 %Note: Hemoglobin A1c results are invalid for patients with abnormal amounts of HbF. Blood transfusions may impact the HbA1c concentration in the patient sample. Estimated Average Glucose 140 mg/dL [facility] Comment:eAG = Estimated ave rage glucose which is %A1C expressed asaverage glucose, using the formula of the S4K-[id number] Glucose study (ADAG), Diabetes Care, Vol.31,#8,2007 Blood Venous blood specimen / Unknown 02/01/2025 8:50 AM EDT 02/01/2025 11:30 AM EDT us Luther Dean MD LAB BLOOD ORDERABLES Final Resul t Performing Organization Address [facility] Co de Phone Number [facility] [address] [place] [phone] * TSH W/Reflex to FT4 (01/31/2025 10:06 AM EDT) TSH reflex Free T4 1.66 0.32 - 4.0 uIU/mL [facility] Blood Venous blood specimen / Unknown 01/31/2025 10:06 AM EDT 01/31/2025 11:45 AM EDT us Luther Dean MD LAB BLOOD ORDERABLES Final Resul t Performing Organization Address [facility] Co de Phone Number [facility] [address] [place] [phone] * (ABNORMAL) Lipid Panel, Standard (01/31/2025 10:06 AM EDT) Triglycerides 170(H) <150 mg/dL [facility] Comment:Desirable Triglyceri de: less than 150 mg/dLBorderline High Triglyceride 150-199 mg/dLHigh Triglyceride: 200-499 mg/dLVery High Triglyceride: greater than or equal to 5OO mg/dL Cholesterol 247(H) <200 mg/dL [facility] Comment:Desirable Cholestero l: less than 200 mg/dLBorderline High Cholesterol: 200-239 mg/dLHigh Cholesterol: greater than 239 mg/dL LDL Cholesterol Calculated 161(H) <100 mg/dL [facility] Comment:Desirable LDL: less than 100 mg/dLNear Optimal/Above Optimal LDL: 110- 129 mg/dLBorderline High LDL: 130-159 mg/dLHigh LDL: 160-189 mg/dLVery High LDL: greater than or equal to 190 mg/dL HDL Cholesterol 52 >40 mg/dL [facility] Comment:Desirable HDL: great er than 40 mg/dL Note: This HDL assay may give artificially low results in patients with liver disease. Blood Venous blood specimen / Unknown 01/31/2025 10:06 AM EDT 01/31/2025 11:45 AM EDT us Luther Name MD LAB BLOOD ORDERABLES Final Resul t [facility] [address] [place] [phone] * (ABNORMAL) Comprehensive Metabolic Panel (01/31/2025 10:06 AM EDT) Sodium 143 135 - 145 mmol/L [facility] Potassium 4.5 3.3 - 5.1 mmol/L [facility] Chloride 108 96 - 108 mmol/L [facility] Carbon Dioxide 28 22 - 29 mmol/L [facility] Anion Gap 12 12 - 20 [facility] Urea Nitrogen (BUN) 15 9 - 16 mg/dL [facility] Creatinine, Serum 0.80 0.5 - 1.4 mg/dL [facility] Estimated Glomerular Filt Rate >60 [facility] Comment:Chronic Kidney Disea se: Estimated GFR < 60 mL/min/1.42x5Afifbr Kidney Disease: Estimated GFR < 15 mL/min/1.73m2 Glucose 145(H) 60 - 115 mg/dL [facility] Calcium 9.1 8.4 - 10.2 mg/dL [facility] Bilirubin, Total 0.3 0.0 - 1.0 mg/dL [facility] Aspartate Amino Transferase 21 5 - 31 U/L [facility] Alanine Aminotransferase 42(H) 0 - 31 U/L [facility] Total Protein 7.0 6.5 - 8.0 g/dL [facility] Albumin Level 4.2 3.5 - 5.0 g/dL [facility] Alkaline Phosphatase 87 39 - 117 U/L [facility] Blood Venous blood specimen / Unknown 01/31/2025 10:06 AM EDT 01/31/2025 11:45 AM EDT us Luther Dean MD LAB BLOOD ORDERABLES Final Resul t [facility] [address] [place] [phone] * Hm Colonoscopy (11/03/2022 6:56 PM EDT) Historical Provider HEALTH MAINTENANCE Final Result * 3D BILATERAL DIAGN MAMMO 1 (04/30/2020 9:50 AM EDT) Anatomical Region Laterality Modality Breast Bilateral Mammography 04/30/2020 9:50 AM EDT Narrative 04/30/2020 9:52 AM EDT Refer to the Notes tab for result details [facility] Procedure: 3D BILATERAL DIAGN MAMMO 1 Procedure Note Provider, Humza, - 11/08/2022 Refer to the Notes tab for result details [facility] Procedure: 3D BILATERAL DIAGN MAMMO 1 Luther Dean MD IMG BI PROCEDURES Final Result from Last 3 Months or Most Recently Relevant to Health Maintenance Insurance [facility] 3 Care Teams Garbage Collector Relationship Specialty Start Date End Date Name, MD Luther [address] [place] [phone] PCP - General Family Medicine 11/21/15
--- OUTSIDE RECORDS SUMMARY | 2025-03-21 16:10 | XMS_ITS | Patient Health Record ---
Author Organization [facility] Address [address] [place] [address] Care Team Providers Care Mounter [employer] Name Role Phone Name Luther AUSTIN Primary Care Provider Jackson Yoo Unavailable [phone] ANTONIA POWERS Unavailable Unavailable Allergies Allergen (clinical drug ingredient) Drug/Non Drug Allergy documented on EMR Reaction Allergy Type Onset Date Status infliximab Remicade Unknown Drug Allergy Active Results Component Value Reference Range Notes T Spot TB Reviewed date:08/26/2024 05:46:54 PM Interpretation: Performing Lab:[facility], [address] [place] [phone] Notes/Report: TSpotTB Negative Negative A negative test [...] Passed For additional information, please refer to http://education.CustomerAdv[employer].com.com/faq/XUP838 (This link is being provided for informational/ educational purposes only.) THIS TEST WAS PERFORMED AT: [facility] [address] [place] [address] KANDI BARROSO MD,PHD Complete Blood Count Auto Di ff Reviewed date:08/23/2024 04:35:44 PM Interpretation: Performing Lab:[facility], [address] [place] [phone] Notes/Report: White Blood Count 4.7 4.8-10.8 X10*3/uL [...] te Reviewed date:08/23/2024 04:35:51 PM Interpretation: Performing Lab:[address] [address] Notes/Report: Erythrocyte Sedimentation Rate 24 0-20 MM/HR Patients with polycythemia and many hemoglobin abnormalities may have depressed sed rates whereas patients with anemia may have elevated sed rates. Liver Panel Reviewed date:08/23/2024 04:36:08 PM Interpretation: Performing Lab:[address] [address] Notes/Report: Bilirubin Total 0.3 0.0-1.0 mg/dL Bilirubin Direct 0.1 0.0-0.5 mg/dL Aspartate Amino Transferase 29 5-31 U/L Alanine Aminotransferase 46 0-31 U/L Total Protein 7.3 6.5-8.0 g/dL Albumin Level 4.0 3.5-5.0 g/dL Alkaline Phosphatase 98 39-117 U/L Basic Metabolic Panel Reviewed date:08/23/2024 04:36:23 PM Interpretation: Performing Lab:[address] [address] Notes/Report: Sodium 144 135-145 mmol/L Potassium 4.7 [...] Protein Reviewed date:08/23/2024 04:36:31 PM Interpretation: Performing Lab:[address] [address] Notes/Report: C Reactive Protein 1.77 < or = 0.50 mg/dL Hepatitis B Profile Reviewed date:08/25/2024 09:40:13 PM Interpretation: Performing Lab:[address] [address] Notes/Report: Hepatitis B Surface Antibody NONREACTIVE Nonreactive [...] Problem Status W/U Status Risk Notes Problem 169210666 Encounter for screening for malignant neoplasm of colon (Z12.11) Active confirmed Problem 196591568 History of adenomatous polyp of colon (Z86.010) Active confirmed Problem History of polyp of colon (situation) (163487040) Personal history of colonic polyps (Z86.010) Active confirmed Problem 866177902 Ulcerative (chronic) pancolitis without complications (K51.00) Active confirmed Problem 584057578 Nausea (R11.0) Active confirmed Problem 42676212 Rectal bleed (K62.5) Active confirmed Problem 96784258 Ulcerative colitis without complications, unspecified location (K51.90) Active confirmed Problem 324087033 Ulcerative pancolitis without complication (K51.00) Active confirmed Problem Ulcerative colitis (53626323) Ulcerative colitis (K51.90) Active confirmed Problem 663635392 Abdominal pain, generalized (R10.84) Active confirmed Problem 05925823 Diarrhea, unspecified type (R19.7) Active confirmed Problem 302698078 Ulcerative chronic pancolitis without complications (K51.00) Active confirmed Vital Signs Blood pressure diastolic 77 mm Hg 12/29/2024 Height 60.5 in 12/29/2024 Blood pressure systolic 111 mm Hg 12/29/2024 Weight 169 lbs 12/29/2024 BMI 32.46 kg/m2 12/29/2024 Encounters Encounter Location Date Provider Diagnosis [facility] [address] [place] [address] 08/23/2024 Jackson Gaitan Ulcerative pancoliti s without complication K51.00 ; Diarrhea, unspecified type R19.7 and Rectal bleed K62.5 [facility] [address] [place] [address] 12/29/2024 Jackson Gaitan Ulcerative pancoliti s without complication K51.00 ; Diarrhea, unspecified type R19.7 and Rectal bleed K62.5 [facility] [address] [place] [phone] 04/04/2024 Jackson Gaitan [facility] [address] [place] [phone] 11/08/2024 Jackson Gaitan Assessments Encounter Date Diagnosis (ICD Code) [...] Test Name Order Date CHEM 7 PROFILE 05/20/2020 CHEM 7 PROFILE 08/23/2024 CHEM 7 PROFILE 12/09/2016 LIVER PROFILE 12/09/2016 LIVER PROFILE 10/17/2014 LIVER PROFILE 09/11/2022 LIVER PROFILE 08/29/2016 LIVER PROFILE 08/18/2012 LIVER PROFILE 05/18/2021 LIVER PROFILE 10/09/2011 LIVER PROFILE 08/22/2020 LIVER PROFILE 03/07/2015 LIVER PROFILE 05/20/2020 LIVER PROFILE 02/09/2016 LIVER PROFILE 12/30/2012 LIVER PROFILE 08/05/2013 LIVER PROFILE 05/12/2018 LIVER PROFILE 10/18/2020 LIVER PROFILE 12/10/2017 LIVER PROFILE 06/24/2020 LIVER PROFILE 08/23/2024 LIVER PROFILE 05/30/2014 IRON + IBC (FE) 10/09/2011 FERRITIN 10/09/2011 CRP 08/23/2024 CRP 09/11/2022 CBC w DIFF 06/24/2020 CBC w DIFF 05/30/2014 CBC w DIFF 12/09/2016 CBC w DIFF 10/17/2014 CBC w DIFF 08/23/2024 CBC w DIFF 08/29/2016 CBC w DIFF 08/18/2012 CBC w DIFF 05/18/2021 CBC w DIFF 08/22/2020 CBC w DIFF 09/11/2022 CBC w DIFF 03/07/2015 CBC w DIFF 05/20/2020 CBC w DIFF 02/09/2016 CBC w DIFF 12/30/2012 CBC w DIFF 08/05/2013 CBC w DIFF 05/12/2018 CBC w DIFF 10/09/2011 CBC w DIFF 10/18/2020 CBC w DIFF 12/10/2017 SED RATE (ESR) 08/23/2024 SED RATE (ESR) 09/11/2022 HEPATITIS B PROFILE 08/23/2024 HEPATITIS B SURFACE ANTIGEN 01/22/2012 PROMETHEUS THIOPURINE METABOLITES (TPMT) 12/09/2016 PROMETHEUS THIOPURINE METABOLITES (TPMT) 08/29/2016 PROMETHEUS THIOPURINE METABOLITES (TPMT) 02/09/2016 STOOL WBC 09/11/2022 C DIFFICILE RFLX PCR 09/11/2022 C DIFFICILE RFLX PCR 12/29/2024 C DIFFICILE RFLX PCR 08/23/2024 Calprotectin, Fecal 08/23/2024 Calprotectin, Fecal 12/29/2024 GI PANEL 12/29/2024 GI PANEL 08/23/2024 GI PANEL 09/11/2022 GI PANEL 09/15/2022 Future Test Test Name Order Date COLONOSCOPY 01/15/2016 COLONOSCOPY 12/09/2016 COLONOSCOPY 05/12/2018 COLONOSCOPY 11/02/2019 COLONOSCOPY 09/11/2022 Next Appt Details Provider Name:Jackson Gaitan , 07/04/2025 09:10:00 AM, [address] [place] [address], [place] [address], [place], [address], Insurance Providers Payer Name Payer Address Payer Phone Subscriber Number Group Number Insured Name Patient Relationship to Insured Coverage Start Date Coverage End Date [employer] [facility] [address] [address] [place], [place] [id number] KRISTINA RAPHAEL Self - patient is the insured Medical (General) History Medical History History ICD Code Ulcerative colitis, dx'd in approx. 2000 in [place]--she was started on Humira in 2012 after she developed an allergic reaction to the Remicade--she stopped her Humira in the early part of 2015 Colonoscopy June 2018 Le ft colon > right colon-no dysplasia, no adenomas-greatest activity in the rectum and sigmoid Denies SC,DM,CVA,Lung disease,renal dise ase Allergic reaction to Remicad e infusion on 11/09/12 with hives and rash-Rx'd with Benadryl and Hydrocortisone She was [place] [facility] [place] end of April 2014 [...] from the cecum. Pneumonia in 10/2019-- on Aurora xicillin started on 10/28/2019. She describes a [...]
== END 2025-03-21 15:58 | disposition home or self-care (01) ==
LOC: HO.MAMMO 15:57
PROVIDERS: PCP Internal Medicine Geriatric Medicine; Visit Provider Internal Medicine Geriatric Medicine
DX: Z12.31 Encounter for screening mammogram for malignant neoplasm of breast (principal)
CPT/HCPCS: 77063; 77067

== ENCOUNTER → 2025-03-21 15:59 | Outpatient (BNV) | payer OTHER, SELFPAY | PROVIDERS: PCP Internal Medicine Geriatric Medicine; Visit Provider Internal Medicine | DX: Z12.31 Encounter for screening mammogram for malignant neoplasm of breast (principal) | CPT/HCPCS: 77063; 77067 ==